=== PATIENT | female | born 1980 | race Caucasian/White ===

== ENCOUNTER → 2020-05-21 10:07 | Outpatient (CLI) | payer OTHER, SELFPAY ==
[2020-05-06 16:18] VITALS: BMI 27.3
[2020-05-21 12:18] LABS: Absolute Lymphocyte Count 2.56 X10^3/uL (0.83-4.51); Absolute Neutrophil Count 4.2 X10^3/uL (2.0-7.7); Basophil# 0.03 X10^3/uL; Basophil% 0.4 % (0-1); Eosinophil# 0.08 X10^3/uL; Eosinophils% 1.1 % (0-5); Hematocrit 42.8 % (37-47); Hemoglobin 13.9 g/dL (12.0-15.0); Lymphocyte # 2.56 X10^3/ul (4.0); Lymphocyte % 35.5 % (19-41); Mean Corp Hgb Conc 32.5 g/dL (32-36); Mean Corpuscular Hgb 30.1 pg (27.0-32.0); Mean Corpuscular Volume 92.6 fL (81-99); Mean Platelet Vol. 10.7 fl (6.2-12.0); Monocyte# 0.37 X10^3/uL; Monocyte% 5.1 % (0-10); NRBC Flagged by Analyzer 0 % (0-5); Neutrophil # 4.15 X10^3/uL (2.7-7.7); Neutrophil % 57.6 % (47-70); Platelet Count 285 K/mm3 (150-450); RBC Distribution Width CV 12.4 % (11.6-14.6); RBC Distribution Width SD 42.3 fl (35.1-43.9); Red Blood Count 4.62 M/mm3 (4.2-5.4); White Blood Count 7.2 K/mm3 (4.4-11.0)
[2020-05-21 12:25] LABS: ALB/GLOB Ratio 0.9 RATIO (0.9-2.4); AST(SGOT) 14 U/L (15-37); Alanine Aminotransfer ALT/SGPT 19 U/L (13-56); Albumin, Serum 3.5 g/dL (3.2-5.0); Alkaline Phosphatase 40 U/L (45-117); Anion Gap 5 (5-15); BUN 11 mg/dL (7-18); BUN/Creat Ratio 12.8 RATIO (10-20); Calcium,Total 8.7 mg/dL (8.5-10.1); Chloride 107 mmol/L (98-107); Cholesterol 267 mg/dL (200); Creatinine, Serum 0.86 mg/dL (0.55-1.02); EST Glomerular Filtration Rate 77 mL/min (>60); Est Glom Filt Rate - Afr Amer 93 mL/min (>60); Globulin 3.8 g/dL (2.2-4.2); Glucose 83 mg/dL (74-106); High Density Lipoprotein 69 mg/dL; Potassium 4.1 mmol/L (3.5-5.1); Protein, Total 7.3 g/dL (6.4-8.2); Sodium Level 139 mmol/L (136-145); Triglycerides 151 mg/dL; Very Low Density Lipoprotein 30 mg/dL (5-40)
== END ==
PROVIDERS: PCP Internal Medicine; Visit Provider Internal Medicine
DX: I10 Essential (primary) hypertension (principal)
CPT/HCPCS: 36415; 80053; 80061; 85025

== ENCOUNTER → 2020-09-20 15:42 | Outpatient (CLI) | payer OTHER, SELFPAY ==
[2020-09-09 16:15] VITALS: BMI 26.7
[2020-09-20 16:55] LABS: Anion Gap 6 (5-15); BUN 13 mg/dL (7-18); BUN/Creat Ratio 16.4 RATIO (10-20); Calcium,Total 8.7 mg/dL (8.5-10.1); Chloride 103 mmol/L (98-107); Creatinine, Serum 0.79 mg/dL (0.55-1.02); EST Glomerular Filtration Rate 84 mL/min (>60); Est Glom Filt Rate - Afr Amer 102 mL/min (>60); Glucose 78 mg/dL (74-106); Magnesium 2.2 mg/dL (1.6-2.6); Potassium 3.6 mmol/L (3.5-5.1); Sodium Level 137 mmol/L (136-145)
== END ==
PROVIDERS: PCP Internal Medicine; Visit Provider Internal Medicine
DX: I10 Essential (primary) hypertension (principal)
CPT/HCPCS: 36415; 80048; 83735

== ENCOUNTER → 2021-06-16 15:53 | Outpatient (CLI) | payer OTHER, SELFPAY ==
[2021-06-16 16:50] LABS: Absolute Lymphocyte Count 2.67 X10^3/uL (0.83-4.51); Absolute Neutrophil Count 3.8 X10^3/uL (2.0-7.7); Basophil# 0.04 X10^3/uL; Basophil% 0.6 % (0-1); Eosinophils% 1.4 % (0-5); Hemoglobin 13.6 g/dL (12.0-15.0); Lymphocyte # 2.67 X10^3/ul (0.83-4.51); Lymphocyte % 37.7 % (19-41); Mean Corp Hgb Conc 32.4 g/dL (32-36); Mean Corpuscular Hgb 30.2 pg (27.0-32.0); Mean Corpuscular Volume 93.1 fL (81-99); Mean Platelet Vol. 10.3 fl (6.2-12.0); Monocyte% 7.1 % (0-10); NRBC Flagged by Analyzer 0 % (0-5); Neutrophil # 3.76 X10^3/uL (2.7-7.7); Neutrophil % 52.9 % (47-70); Platelet Count 233 K/mm3 (150-450); RBC Distribution Width CV 12.7 % (11.6-14.6); RBC Distribution Width SD 43.7 fl (35.1-43.9); Red Blood Count 4.51 M/mm3 (4.2-5.4); White Blood Count 7.1 K/mm3 (4.4-11.0)
[2021-06-16 17:12] LABS: ALB/GLOB Ratio 0.9 RATIO (0.9-2.4); AST(SGOT) 16 U/L (15-37); Alanine Aminotransfer ALT/SGPT 27 U/L (13-56); Albumin, Serum 3.3 g/dL (3.2-5.0); Alkaline Phosphatase 53 U/L (45-117); Anion Gap 6 (5-15); BUN 12 mg/dL (7-18); BUN/Creat Ratio 12.4 RATIO (10-20); Calcium,Total 8.8 mg/dL (8.5-10.1); Chloride 104 mmol/L (98-107); Cholesterol 244 mg/dL (200); Creatinine, Serum 0.97 mg/dL (0.55-1.02); EST Glomerular Filtration Rate 66 mL/min (>60); Est Glom Filt Rate - Afr Amer 80 mL/min (>60); Globulin 3.5 g/dL (2.2-4.2); Glucose 104 mg/dL (74-106); High Density Lipoprotein 58 mg/dL; Potassium 3.6 mmol/L (3.5-5.1); Protein, Total 6.8 g/dL (6.4-8.2); Sodium Level 140 mmol/L (136-145); Triglycerides 296 mg/dL; Very Low Density Lipoprotein 59 mg/dL (5-40)
== END ==
PROVIDERS: PCP Internal Medicine; Referring Provider Internal Medicine; Visit Provider Internal Medicine
DX: I10 Essential (primary) hypertension (principal)
CPT/HCPCS: 36415; 80053; 80061; 85025

== ENCOUNTER → 2021-07-08 16:14 | Outpatient (CLI) | payer OTHER, SELFPAY ==
[2021-07-08 18:21] LABS: Hemoglobin A1c 4.8 % (3.8-5.6)
== END ==
PROVIDERS: PCP Internal Medicine; Visit Provider Internal Medicine Gastroenterology
DX: R10.9 Unspecified abdominal pain (principal)
CPT/HCPCS: 36415; 83036

== ENCOUNTER → 2021-07-22 14:54 | Outpatient (CLI) | payer OTHER, SELFPAY ==
--- NOTE | 2021-07-22 15:08 | CT_ITS ---
STUDY: CT ABDOMEN AND PELVIS WITH CONTRAST REASON FOR EXAM: Female, 41 years old. 5 to six-month history of upper abdominal pain. RADIATION DOSAGE (If Supplied By Facility): CTDIvol = ( 14.74 ) mGy, DLP = ( 996.36 ) mGycm TECHNIQUE: Transaxial images were obtained from the dome of the diaphragm to the symphysis pubis without oral contrast. Oral and amp;amp; IV Readi-CAT and amp;amp; 100mL Isovue-300 was administered. Sagittal and coronal images were reconstructed. Individualized dose optimization techniques were used for this CT. COMPARISON: None. FINDINGS: The visualized lung bases are unremarkable. The visualized portions of the heart are within normal limits. Normal liver. Normal gallbladder and extrahepatic biliary system. Normal spleen. Normal pancreas. Normal bilateral adrenal glands. Normal right kidney. Normal left kidney. Normal visualized stomach. Normal small intestine. There are scattered colonic diverticula consistent with diverticulosis. The appendix is visualized and appears normal. There is scattered atherosclerotic calcification of the abdominal aorta, without a demonstrated aneurysm. Normal inferior vena cava. There is borderline retroperitoneal lymphadenopathy with enlarged nodes no greater than 10mm in the short axis diameter. Normal urinary bladder. Follicles are seen in both ovaries. There is a small umbilical hernia containing fat. There are mild degenerative changes of the visualized lumbar spine. CT/Abdomen/Pelvis WITH Contrast IMPRESSION: Scattered sigmoid diverticula. Electronically Signed: Dakotah Gaona MD at 15:37 EST , Service support ,
[2021-07-22 15:20] LABS: CREATININE FINGERSTICK 0.9 mg/dL (0.55-1.02); EGFR FINGERSTICK > 60.0000 mL/min (>60)
== END ==
PROVIDERS: PCP Internal Medicine; Visit Provider Internal Medicine Gastroenterology
DX: R10.9 Unspecified abdominal pain (principal)
CPT/HCPCS: 74177; Q9967

== ENCOUNTER 2021-08-02 11:59 | Day surgery (SDC) | payer OTHER, SELFPAY ==
[2021-08-02 12:28] LABS: Internal QC Validated? YES +Cl - CLEAR BKGD; Pregnancy, Urine Negative Negative
[2021-08-02 12:32] VITALS: BP 147/88; PULSE 89; RESP 18; TEMP 36.2; O2SAT 100; BMI 30.4
[2021-08-02] MEDS: Lactated Ringers 1,000 ML 15 ML IV (12:42)
--- NOTE | 2021-08-02 13:00 | EGD_PTH ---
PATIENT: KULDIP RODAS LOC: EN U#:[id number] AGE/SX: 41/F ROOM: RE08/02/[address]: Dr. Sathish Cook DO : 1980 BED: DIS: 08/02/2021 SPEC #: [id number] RECD: 08/02/21 15:18 STATUS: FORD REFrancois #: [id number] BITA: 08/02/21 13:[address]: Sathish Cook DEPT: SURGICAL PATHOLOGY RECD BY: Yesica Garcia ENTERED: 08/03/21 09:34 SP TYPE: EGD BIOPSY OT DR: Dr. Coral Agosto MD Tissues: A - Gastric mucous membrane B - Duodenum, NOS C - Gastric mucous membrane D - Esophagus, NOS Procedures: Special Stain Group II Surgery Specimen Level IV Alcian Blue/PAS (control) HEADER OPERATION: EGD PRE-OP DIAGNOSIS: Chronic abdominal discomfort TISSUE SUBMITTED: A ? Antrum biopsy for histo and H. pylori, B ? Duodenum biopsy, C ? Gastric body biopsy, D ? Distal esophagus biopsy MICROSCOPIC DIAGNOSIS A. Antrum, biopsy: Mild gastritis. See microscopic description and comment. B. Duodenum, biopsy: Fragments of duodenal mucosa with congestion and Smiley gland hyperplasia. C. Gastric body, biopsy: Mild gastritis. See microscopic description. D. Distal esophagus, biopsy: Fragments of gastroesophageal mucosa with moderate chronic inflammation. Intestinal metaplasia (goblet cell metaplasia) not identified. See comment. SJ:jimmy 08/04/2021 COMMENT A. The results of immunohistochemistry for Helicobacter pylori will be reported separately ([id number]). C. Alcian blue/PAS stain with matched control is used in the evaluation of the specimen. MICROSCOPIC DESCRIPTION Slides are reviewed. A & C. The specimen shows fragments of gastric mucosa with chronic inflammatory cell infiltrates in the lamina propria consisting of lymphocytes and plasma cells, consistent with mild chronic gastritis. GROSS DESCRIPTION A - Received in fixative is one container labeled with the patient's name and designated antrum biopsy. The specimen consists of two irregular fragments of light amaya soft tissue that in aggregate measure 0.5 x 0.2 x 0.1 cm. The specimen is totally submitted in one cassette. B - Received in fixative is one container labeled with the patient's name and designated duodenum biopsy. The specimen consists of multiple irregular fragments of light amaya soft tissue that in aggregate measure 1.5 x 0.5 x 0.1 cm. The specimen is totally submitted in one cassette. C - Received in fixative is one container labeled with the patient's name and designated gastric body biopsy. The specimen consists of two irregular fragments of light amaya soft tissue that in aggregate measure 0.6 x 0.2 x 0.1 cm. The specimen is totally submitted in one cassette. D - Received in fixative is one container labeled with the patient's name and designated distal esophagus biopsy. The specimen consists of two irregular fragments of light amaya soft tissue that in aggregate measure 0.5 x 0.2 x 0.1 cm. The specimen is totally submitted in one cassette. / SJ:rg 08/03/21 TC:3 [facility]: [id number] x4, [id number]
--- NOTE | 2021-08-02 13:00 | IMM_PTH ---
PATIENT: KULDIP RODAS LOC: EN U#:[id number] AGE/SX: 41/F ROOM: RE08/02/[address]: Dr. Sathish Cook DO : 1980 BED: DIS: 08/02/2021 SPEC #: [id number] RECD: 08/03/21 13:38 STATUS: FORD REQ #: [id number] BITA: 08/02/21 13:[address]: Sathish Cook DEPT: IMMUNOHISTOCHEMISTRY RECD BY: Shaista Lazaro ENTERED: 08/03/21 13:38 SP TYPE: IMMUNO OTHR DR: Dr. Coral Agosto MD Tissues: A - Stomach, NOS Procedures: H Pylori (initial) PHYSICIAN & INSTITUTION [address] [address] SPECIMEN INFORMATION: Tissue Source: A ? Antrum biopsy Clinical Info: Chronic abdominal discomfort Specimen Number: [id number] CPT code: 46873 METHODOLOGY: Deparaffinized sections of prefer/formalin-fixed tissue or PAP/DQ stained slides are incubated with monoclonal/polyclonal antibodies/oligonucleotide probes. Localization is made via biotin free immunoperoxidase method. Appropriate controls are performed and reacted as expected. Results on target cell population are indicated in the following table: RESULTS: ANTIBODY / CLONE RESULT Block A H Pylori (polyclonal) negative These tests were developed and their performance characteristics determined by [facility]. They may not have been cleared or approved by the U.S. Food and Drug Administration. The FDA has determined that such clearance or approval is not necessary. INTERPRETATION: A. Antrum, biopsy: Negative for Helicobacter pylori organisms. SJ:jimmy 08/04/2021
--- NOTE | 2021-08-02 14:04 | HP.PCM_ITS ---
History and Physical Date of Admission: 08/02/21 who presents to the office today for In high school she got mono and following this she got 6 sinus infections a year and received antibiotics each time. AFter a while she started getting bloating, abdominal pain. Was able to treat sinus infections preventatively. Approximately six months ago she got very bad abdominal pain radiating into back especially with fasting and during her menstrual cycle. When abdominal pain she has a 4-6 diarrhea episodes a day. Otherwise she runs toward perdiodic constipation. Denies mucous and blood. Probiotic started and this has helped. ROS Const Constitutional: Positive for fatigue ENT ENT: Positive for nasal congestion Gastro GI: Positive for abdominal pain, bloating, change in bowel habits, constipation, diarrhea and nausea/dyspepsia Genitourinary-Female: Positive for urinary incontinence Musc Musculoskeletal: Positive for joint pain, muscle cramps, stiffness and Arthritis Psych Psychiatric: Positive for anxiety Endo Endocrine: Positive for fatigue Exam Const General: cooperative and comfortable Nutritional Appearance: average body habitus and well nourished HENMT Head: normal to inspection Ears: hearing grossly normal bilaterally Nose: external nose normal Face and sinus: normal facial exam Mouth: oral mucosae normal Throat: posterior oropharynx normal Eyes General: appearance normal, both eyes and all related structures Neck Neck: normal visual inspection Chest Chest palpation & inspection: normal inspection of the chest and normal palpation of entire chest wall Resp Effort & Inspection: normal respiratory effort Auscultation: Bilateral: Clear to Auscultation Cardio Palpation: normal PMI Rate: regular rate Rhythm: regular rhythm GI Inspection: normal to inspection Auscultation: normal bowel sounds Percussion: normal to percussion Palpation: no hepatosplenomegaly Skin General: no rashes or lesions noted Neuro General: patient alert Extrem General: normal to inspection Psych Affect: normal affect Quality Reporting Tobacco Screening ([facility] 138) Smoking Status: Never smoker Assessment and Plan Assessment and Plan (1) Abdominal discomfort: Status: Chronic Orders: Orders: Hemoglobin A1c 07/08/21 CT Abd/Pelvis W/WO Contrast 07/08/21 Plan - Dr. Bower Friend, DO: The differential diagnosis for abdominal pain does include gastritis, atypical gastroesophageal reflux disease, gastroparesis and less likely IBS. We will get a CT scan abdomen pelvis we will also perform upper endoscopy evaluate her upper GI tract. I have re-examined the patient. There are no clinical changes since date of exam.
[2021-08-02 14:30] VITALS: BP 112/81; BP 147/88; PULSE 83; RESP 16; TEMP 36.2; O2SAT 98
--- NOTE | 2021-08-02 14:31 | OP.EGD_ITS ---
Patient Name: Arleth Ahumada Procedure Date: 08/02/2021 2:03 PM Date of : 1980 Age: 41 Procedure: Upper GI endoscopy Indications: Epigastric abdominal pain Providers: Sathish Cook DO Medicines: See the Anesthesia note for documentation of the administered medications Patient Profile: This is a 41 year old female. Refer to note in patient chart for documentation of history and physical. Patient has symptoms of acute abdominal cramping and acute epigastric abdominal pain. Complications: No immediate complications. Procedure: Pre-Anesthesia Assessment: - Prior to the procedure, a History and Physical was performed, and patient medications and allergies were reviewed. The patient is competent. The risks and benefits of the procedure and the sedation options and risks were discussed with the patient. All questions were answered and informed consent was obtained. Patient identification and proposed procedure were verified by the physician in the pre-procedure area. Mental Status Examination: alert and oriented. Airway Examination: normal oropharyngeal airway and neck mobility. Respiratory Examination: clear to auscultation. CV Examination: normal. Prophylactic Antibiotics: The patient does not require prophylactic antibiotics. Prior Anticoagulants: The patient has taken no previous anticoagulant or antiplatelet agents. ASA Grade Assessment: II - A patient with mild systemic disease. After reviewing the risks and benefits, the patient was deemed in satisfactory condition to undergo the procedure. The anesthesia plan was to use moderate sedation / analgesia (conscious sedation). Immediately prior to administration of medications, the patient was re-assessed for adequacy to receive sedatives. The heart rate, respiratory rate, oxygen saturations, blood pressure, adequacy of pulmonary ventilation, and response to care were monitored throughout the procedure. The physical status of the patient was re-assessed after the procedure. After obtaining informed consent, the endoscope was passed under direct vision. Throughout the procedure, the patient's blood pressure, pulse, and oxygen saturations were monitored continuously. The gastroscope was introduced through the mouth, and advanced to the second part of duodenum. The upper GI endoscopy was accomplished without difficulty. The patient tolerated the procedure well. Moderate Sedation: Moderate (conscious) sedation was administered by the endoscopy nurse and supervised by the endoscopist. The patient's oxygen saturation, heart rate, blood pressure and response to care were monitored. Total physician intraservice time was 15 minutes. Scope In: 2:13:46 PM Scope Out: 2:23:59 PM Total Procedure Duration Time 0 hours 10 minutes 13 seconds Findings: LA Grade A (one or more mucosal breaks less than 5 mm, not extending between tops of 2 mucosal folds) esophagitis with no bleeding was found 34 to 35 cm from the incisors. Biopsies were taken with a cold forceps for histology. Verification of patient identification for the specimen was done. Estimated blood loss was minimal. Also a small hiatal hernia was seen. Localized mild inflammation characterized by erythema was found in the gastric body and in the prepyloric region of the stomach. Biopsies were taken with a cold forceps for histology. Verification of patient identification for the specimen was done. Estimated blood loss was minimal. Localized mild inflammation characterized by congestion (edema) was found in the duodenal bulb. Biopsies were taken with a cold forceps for histology. Impression: - LA Grade A reflux esophagitis. Biopsied. - Gastritis. Biopsied. - Duodenitis. Biopsied. Recommendation: - Await pathology results. - Repeat upper endoscopy in 1 year for surveillance based on pathology results. - Return to GI clinic in 2 weeks. - Continue present medications. Procedure Code(s): --- Professional --- 90095, Esophagogastroduodenoscopy, flexible, transoral; with biopsy, single or multiple G0500, Moderate sedation services provided by the same physician or other qualified health day care home mother performing a gastrointestinal endoscopic service that sedation supports, requiring the presence of an independent trained observer to assist in the monitoring of the patient's level of consciousness and physiological status; initial 15 minutes of intra-service time; patient age 5 years or older (additional time may be reported with 38790, as appropriate) CPT copyright 2017 [employer]. All rights reserved. The codes documented in this report are preliminary and upon speech language pathologist travel review may be revised to meet current compliance requirements. Sathish Cook DO 08/02/2021 2:31:32 PM This report has been signed electronically. Number of Addenda: 1 Note Initiated On: 08/02/2021 2:03 PM Addendum Number: 1 Addendum Date: 05/05/2022 6:37:10 AM MAC was used instead of moderate sedation for this patient. Sathish Cook DO 05/05/2022 6:37:15 AM This report has been signed electronically.
[2021-08-02 14:35] VITALS: BP 126/82; BP 147/88; PULSE 79; RESP 16; O2SAT 99
[2021-08-02 14:40] VITALS: BP 128/84; BP 147/88; PULSE 72; RESP 16; O2SAT 99
[2021-08-02 14:45] VITALS: BP 132/85; BP 147/88; PULSE 70; RESP 16; TEMP 36.1; O2SAT 100
[2021-08-02 15:18] VITALS: BP 147/88
== END 2021-08-02 15:44 ==
LOC: EN 12:01 → AC 12:02
PROVIDERS: Anesthesiology; PCP Internal Medicine; Referring Provider Internal Medicine; Visit Provider Internal Medicine Gastroenterology
PROC: (CPT 43239; principal; 2021-08-02 12:55)
DX: K21.00 Gastro-esophageal reflux disease with esophagitis, without bleeding (principal); K29.70 Gastritis, unspecified, without bleeding; K29.80 Duodenitis without bleeding; R53.83 Other fatigue
CPT/HCPCS: 43239; 81025; 88305; 88313; 88342; J7120; J2405

== ENCOUNTER 2021-09-22 15:27 | Outpatient (CLI) | payer OTHER, SELFPAY ==
[2021-09-22 17:27] LABS: Anion Gap 5 (5-15); BUN 13 mg/dL (7-18); Calcium,Total 8.5 mg/dL (8.5-10.1); Chloride 106 mmol/L (98-107); Creatinine, Serum 0.81 mg/dL (0.55-1.02); EST Glomerular Filtration Rate 82 mL/min (>60); Est Glom Filt Rate - Afr Amer 99 mL/min (>60); Glucose 111 mg/dL (74-106); Magnesium 2.3 mg/dL (1.6-2.6); Potassium 3.6 mmol/L (3.5-5.1); Sodium Level 139 mmol/L (136-145); T4 Free Direct 0.95 ng/dL (0.76-1.46); Thyroid Stim Hormone (TSH) 2.45 uIU/mL (0.358-3.74)
[2021-09-26 16:08] LABS: Endomysial Antibody IgA Negative (Negative)
[2021-09-26 20:21] LABS: Immunoglobulin A 114 mg/dL (87-352); t-Transglutaminase IgA <2 U/mL (0-3)
== END 2021-09-22 23:59 | disposition short-term general hospital (02) ==
LOC: BIMLAB 15:28
PROVIDERS: Internal Medicine Gastroenterology; PCP Internal Medicine; Referring Provider Internal Medicine; Visit Provider Internal Medicine
DX: N92.6 Irregular menstruation, unspecified (principal); K29.60 Other gastritis without bleeding; R25.2 Cramp and spasm
CPT/HCPCS: 36415; 80048; 82784; 83516; 83735; 84439; 84443; 86255

== ENCOUNTER → 2022-10-20 | Outpatient (CLI) | payer OTHER, SELFPAY ==
[2022-10-20 12:47] LABS: Absolute Lymphocyte Count 2.51 X10^3/uL (0.83-4.51); Absolute Neutrophil Count 3.3 X10^3/uL (2.0-7.7); Basophil# 0.04 X10^3/uL; Basophil% 0.6 % (0-1); Eosinophil# 0.08 X10^3/uL; Eosinophils% 1.3 % (0-5); Hematocrit 44.5 % (37-47); Hemoglobin 14.9 g/dL (12.0-15.0); Lymphocyte # 2.51 X10^3/ul (0.83-4.51); Lymphocyte % 39.5 % (19-41); Mean Corp Hgb Conc 33.5 g/dL (32-36); Mean Corpuscular Hgb 31.1 pg (27.0-32.0); Mean Corpuscular Volume 92.9 fL (81-99); Mean Platelet Vol. 10.2 fl (6.2-12.0); Monocyte# 0.43 X10^3/uL; Monocyte% 6.8 % (0-10); NRBC Flagged by Analyzer 0 % (0-5); Neutrophil # 3.28 X10^3/uL (2.7-7.7); Neutrophil % 51.5 % (47-70); Platelet Count 256 K/mm3 (150-450); RBC Distribution Width CV 12.5 % (11.6-14.6); RBC Distribution Width SD 42.9 fl (35.1-43.9); Red Blood Count 4.79 M/mm3 (4.2-5.4); White Blood Count 6.4 K/mm3 (4.4-11.0)
[2022-10-20 12:59] LABS: AST(SGOT) 24 U/L (15-37); Alanine Aminotransfer ALT/SGPT 29 U/L (13-56); Albumin, Serum 3.7 g/dL (3.2-5.0); Alkaline Phosphatase 66 U/L (45-117); Anion Gap 7 (5-15); BUN 14 mg/dL (7-18); BUN/Creat Ratio 16.5 RATIO (10-20); Calcium,Total 8.8 mg/dL (8.5-10.1); Chloride 103 mmol/L (98-107); Cholesterol 273 mg/dL (200); Creatinine, Serum 0.85 mg/dL (0.55-1.02); EST Glomerular Filtration Rate 77 mL/min (>60); Est Glom Filt Rate - Afr Amer 94 mL/min (>60); Globulin 3.6 g/dL (2.2-4.2); Glucose 93 mg/dL (74-106); High Density Lipoprotein 56 mg/dL; Magnesium 2.1 mg/dL (1.6-2.6); Phosphorus 3.4 mg/dL (2.5-4.9); Potassium 3.8 mmol/L (3.5-5.1); Protein, Total 7.3 g/dL (6.4-8.2); Sodium Level 138 mmol/L (136-145); Triglycerides 199 mg/dL; Very Low Density Lipoprotein 40 mg/dL (5-40)
== END | disposition home or self-care (01) ==
LOC: BIMLAB 11:32
PROVIDERS: PCP Internal Medicine; Visit Provider Internal Medicine
DX: I10 Essential (primary) hypertension (principal); E78.5 Hyperlipidemia, unspecified; R25.2 Cramp and spasm
CPT/HCPCS: 36415; 80053; 80061; 83735; 84100; 85025

== ENCOUNTER 2025-04-07 12:53 | Day surgery (SDC) | payer OTHER, SELFPAY ==
[2025-04-07] VITALS (7 sets, daily range): BP systolic 110–138; BP diastolic 64–90; PULSE 64–77; RESP 16; TEMP 36.2–37.2; O2SAT 100
--- NOTE | 2025-04-07 13:15 | HP.PCM_ITS ---
[facility] - General General Date of Admission: 04/07/25 Date of Service: 04/07/25 Chief Complaint: Screening colonoscopy [facility] Narrative KULDIP RODAS, is a 45 F who presents today for screening colonoscopy. She has never had a colonoscopy in the past. She does not have any abdominal pain, cramping, chest pain or shortness of breath. [facility] Medical History Wears glasses Bladder disease History of diverticulitis Gastric reflux Health care maintenance Obesity (BMI 30.0-34.9) Hyperlipidemia Muscle cramps Menstrual irregularity Arthritis High cholesterol Diverticulosis Non-smoker Leg cramps History of edema Abdominal discomfort Hypertension Psoriasis Home Medications ?Medication ?Instructions ?Recorded ?Last Taken ?Type turmeric 400 mg capsule 450 mg PO DAILY 07/26/21 Unk nown History magnesium 30 mg tablet 30 mg PO DAILY 12/29/21 Unkn own History vitamin C 50 mg-B5 125 mg-DMAE 1 tab PO DAILY 10/11/23 Unknown History 12.5 fk-khlusbupe-pmlzkllw-herb tablet (Adrenal Optimizer) [place]-herbal drugs tablet 1 tab PO Q5D 04/01/25 U nknown History Allergy/AdvReac Type Severity Reaction Status Date / Time almond Allergy Mild sore in Verified 04/01/25 10:23 mouth amoxicillin Allergy Mild rash Verified 04/01/25 10:23 Family History Grandmother Breast cancer Thyroid disorder Father Diabetes Cancer Mother Hypertension Psoriasis Grandfather Psoriasis Brother Psoriasis Sister Psoriasis Surgical History History of surgery History of surgery Ganglion cyst Social History Smoking Status: Never smoker alcohol intake: never substance use type: does not use ROS Constitutional Constitutional: Denies fatigue, fever(s), poor appetite, weight gain or weight loss Gastrointestinal Gastrointestinal: Denies belching, bloating, change in bowel habits, change in stool character, chewing difficulty, coffee ground emesis, constipation, cramping, diarrhea, dyspepsia, dysphagia, early satiety, excessive flatus, fecal incontinence, heartburn, hematemesis, hematochezia, hemorrhoids, loose stools, melena, nausea, odynophagia, rectal bleeding, tenesmus, vomiting or weight changes Physical Exam Const alert, oriented x3, no apparent distress and healthy appearing General Appearance: cooperative GI normal to inspection, nondistended, normoactive bowel sounds, soft to palpation, non-tender and non-distended Percussion: normal to percussion Rectal Exam: deferred Assessment & Plan Assessment/Plan (1) Encounter for screening colonoscopy: PLAN: She was explained alternatives, risk and benefits include not withstanding bleeding, infection, sepsis, perforation, need emergent urgent . She will have an ASA of 3.
[2025-04-07] MEDS: Lactated Ringers 1,000 ML 15 ML IV (13:28)
[2025-04-07 13:29] LABS: Internal QC Validated? YES +Cl - CLEAR BKGD; Pregnancy, Urine Negative Negative
[2025-04-07 13:30] LABS: Record Kit Lot#,Urine Preg 962302
--- NOTE | 2025-04-07 14:06 | PRE.ANES_ITS ---
ASA Classification* ASA Classification ASA Classification: 1 Assessment & Plan Anesthesia* Anesthesia Assessment Anesthesia Assessment: Discussed sedation and/or anesthesia options, risks, benefits, and alternatives with patient/parents/legal guardian/POA. Questions invited. The patient/parents/legal guardian/POA seems to understand and agrees to proceed with anesthesia plan. Reviewed the physical assessment, medical history, allergy history and patient home medications list prior to surgery/procedure/anesthetic and documented any changes. Performed airway and anesthesia risk assessments. Anesthesia Type Anesthesia Type: MAC History Source History Obtained from:: Patient and Chart Anesthesia Focused Assessment* Temperature: 98.6 F Pulse Rate: 73 Blood Pressure: 137/84 Respiratory Rate: 16 Pulse Ox: 100 Oxygen Delivery Method: Room Air Airway Assessment Mouth opens: >3 cm Mallampati Score: II Teeth Condition: Intact Neck Range of motion (ROM): Full ROM Labs Anesthesia Preop lab: CBC WBC 6.4 K/mm3 (4.4-11.0) 10/20/22 11:10/20/22 RBC 4.79 M/mm3 (4.2-5.4) 10/20/22 11:10/20/22 Hgb 14.9 g/dL (12.0-15.0) 10/20/22 11:10/20/22 Hct 44.5 % (37-47) 10/20/22 11:32 10/20/22 Plt Count 256 K/mm3 (150-450) 10/20/22 11:32 10/20/22 CHEMISTRY Potassium 3.8 mmol/L (3.5-5.1) 10/20/22 11:32 10/20/22 Sodium 138 mmol/L (136-145) 10/20/22 11:32 10/20/22 Magnesium 2.1 mg/dL (1.6-2.6) 10/20/22 11:10/20/22 Phosphorus 3.4 mg/dL (2.5-4.9) 10/20/22 11:32 10/20/22 BUN 14 mg/dL (7-18) 10/20/22 11:32 10/20/22 Creatinine 0.85 mg/dL (0.55-1.02) 10/20/22 11:32 10/20/22 Glucose 93 mg/dL (74-106) 10/20/22 11:32 10/20/22 TSH 2.45 uIU/mL (0.358-3.74) 09/22/21 15:29 COAG Urine Test Negative Negative 04/07/25 13:12 04/07/25 Pre-Assessment Diagnosis/Proposed Procedure Planned Operative Procedure(s): COLONOSCOPY Anesthesia History Anesthesia History - senior patient account representative: Anesthesia History - senior patient account representative Hx Hospitalization No 04/01/25 10:25 Any Problems With Anesthesia No 04/01/25 10:25 Cholinesterase deficiency No 04/01/25 10:25 You/Your Family Experience No 04/01/25 10:25 fever (hyperthermia) with Relationship Recent Exposure to Contagious No 04/07/25 13:18 Disease Does patient have nerve No 04/01/25 10:25 stimulator Patient instructed to have device shut off --Does patient have Pacemaker No 04/07/25 13:18 or ICD? When Was Last Pacemaker Check QUESTION #4 FULL TEXT: You/Your Family Experience fever (hyperthermia) with Anesthesia Last Oral Intake Last Oral intake: Last Oral Intake NPO since 20:00 04/07/25 13:18 Meds taken in AM with sips of No 04/07/25 13:18 water? Meds patient instructed to take am of surgery PONV PONV - senior patient account representative: PONV - senior patient account representative Female Yes 04/01/25 10:25 HX of Motion Sickness No 04/01/25 10:25 HX of N/V After Surgery No 04/01/25 10:25 Non-Smoker Yes 04/01/25 10:25 Duration of Surgery greater No 04/01/25 10:25 than 60 minutes Number of Risk Factors 2 04/01/25 10:25 PONV Score Moderate Risk 04/01/25 10:25 Height & Weight Height & Weight: Anesthesia: Height & Weight Height 5 ft 6.93 in 04/07/25 13:18 Respiratory Assessment Respiratory Assessment - senior patient account representative: Respiratory Tract Infection Hx - senior patient account representative Hx Respiratory Tract Infection No 04/01/25 10:25 STOP Sleep Apnea STOP Sleep Apnea - senior patient account representative: STOP Sleep Apnea - senior patient account representative Hx Hypertension No 04/01/25 10:25 Hx Sleep Apnea No 07/30/25 10:25 CPAP BIPAP Do you snore loudly (louder No 04/01/25 10:25 than talking or can be heard Do you often feel tired/ No 04/01/25 10:25 fatigued/ sleepy during daytime? Has anyone observed you stop No 04/01/25 10:25 breathing during sleep? STOP Results Negative 04/01/25 10:25 QUESTION #5 FULL TEXT : Do you snore loudly (louder than talking or can be heard through closed doors)? Tobacco Use History Tobacco Use History - senior patient account representative: Tobacco Use History - senior patient account representative Tobacco Use Smoking Status Never smoker 04/01/25 10:25 Hx Tobacco Use No 04/01/25 10:25 Years Smoking Packs Smoked per Day Smoking Cessation Date was within the last 15 years Hx Smoking Cessation Date Hx Smoking Cessation Counseling Hematologic Medial History Hematologic Hx - senior patient account representative: Hematologic Medical Hx - laundry housekeeping aide Hx of Blood Transfusion No 04/01/25 10:25 Hx of Transfusion in last 3 No 04/01/25 10:25 Months Date of Last Transfusion (if within last 3 months) Ever experience any problems No 04/01/25 10:25 with transfusion(s)? Specify any problems Hx of Preganancy in last 3 No 04/01/25 10:25 Months Nurse Filling Out Transfusion [facility]LE[facility] 04/01/25 10:25 & Questions: Date: 04/01/25 04/01/25 10:25 Time: 10:34 04/01/25 10:25 Patient unable to answer at this time (ie. confused, unrespo /Reproduction History /Reproductive History - senior patient account representative: /Reproductive Hx- senior patient account representative Hx Now No 04/01/25 10:25 Gestational Age (in weeks): EDC: Hx Hx Para Hx Section SAB No 04/01/25 10:25 Active Medications Active Medications: Current Medications Generic Name Dose Route Start Last Admin Trade Name Freq PRN Reason Stop Dose Admin Lactated Ringer's 1,000 mls @ 15 mls/hr 04/07/25 13:15 04/07/25 13:28 IV 15 mls/hr .Q48H LIDA Administration PFSH Medical History Wears glasses Bladder disease History of diverticulitis Gastric reflux Health care maintenance Obesity (BMI 30.0-34.9) Hyperlipidemia Muscle cramps Menstrual irregularity Arthritis High cholesterol Diverticulosis Non-smoker Leg cramps History of edema Abdominal discomfort Hypertension Psoriasis Home Medications ?Medication ?Instructions ?Recorded ?Last Taken ?Type turmeric 400 mg capsule 450 mg PO DAILY 07/26/21 Unk nown History magnesium 30 mg tablet 30 mg PO DAILY 12/29/21 Unkn own History vitamin C 50 mg-B5 125 mg-DMAE 1 tab PO DAILY 10/11/23 Unknown History 12.5 sr-wdpyjalsj-yoqrenwu-herb tablet (Adrenal Optimizer) [place]-herbal drugs tablet 1 tab PO Q5D 04/01/25 U nknown History Allergy/AdvReac Type Severity Reaction Status Date / Time almond Allergy Mild sore in Verified 04/01/25 10:23 mouth amoxicillin Allergy Mild rash Verified 04/01/25 10:23 Family History Grandmother Breast cancer Thyroid disorder Father Diabetes Cancer Mother Hypertension Psoriasis Grandfather Psoriasis Brother Psoriasis Sister Psoriasis Surgical History History of surgery History of surgery Ganglion cyst Social History Smoking Status: Never smoker alcohol intake: never substance use type: does not use Review of Systems (Anesthesia) ROS Narrative System reviewed and no additional complaints, except as documented.
--- NOTE | 2025-04-07 15:06 | PCM.POST.ANE ---
Anesthesia: Postop Eval I Current Vital Signs Temperature: 98.6 F Pulse Rate: 77 Blood Pressure: 110/64 Respiratory Rate: 16 Pulse Ox: 100 Assessment Airway patent: Yes Spontaneous unlabored respirations: Yes nausea: No Vomiting: No Anesthesia Complication: No Fluid Hydration Crystalloid volume administer (ml): 400 Total IV fluid infused: 400 Progress Note Anesthesia document: Postop Eval 1 completed: Yes
--- NOTE | 2025-04-07 15:50 | OP.COLON_ITS ---
Patient Name: Arleth Ahumada Procedure Date: 04/07/2025 2:31 PM Date of : 1980 Age: 45 Procedure: Colonoscopy Indications: Screening for colorectal malignant neoplasm Providers: Sathish Cook DO Medicines: Monitored Anesthesia Care Patient Profile: This is a 45 year old female. Refer to note in patient chart for documentation of history and physical. Last Colonoscopy: none. The patient's first colonoscopy is today. Complications: No immediate complications. Procedure: Pre-Anesthesia Assessment: - Prior to the procedure, a History and Physical was performed, and patient medications and allergies were reviewed. The patient is competent. The risks and benefits of the procedure and the sedation options and risks were discussed with the patient. All questions were answered and informed consent was obtained. Patient identification and proposed procedure were verified by the physician in the pre-procedure area. Mental Status Examination: alert and oriented. Airway Examination: normal oropharyngeal airway and neck mobility. Respiratory Examination: clear to auscultation. CV Examination: normal. Prophylactic Antibiotics: The patient does not require prophylactic antibiotics. Prior Anticoagulants: The patient has taken no anticoagulant or antiplatelet agents except for NSAID medication. ASA Grade Assessment: II - A patient with mild systemic disease. After reviewing the risks and benefits, the patient was deemed in satisfactory condition to undergo the procedure. The anesthesia plan was to use monitored anesthesia care (MAC). Immediately prior to administration of medications, the patient was re-assessed for adequacy to receive sedatives. The heart rate, respiratory rate, oxygen saturations, blood pressure, adequacy of pulmonary ventilation, and response to care were monitored throughout the procedure. The physical status of the patient was re-assessed after the procedure. After I obtained informed consent, the scope was passed under direct vision. Throughout the procedure, the patient's blood pressure, pulse, and oxygen saturations were monitored continuously. The pediatric colonoscope was introduced through the anus and advanced to the cecum, identified by appendiceal orifice and ileocecal valve. The colonoscopy was performed without difficulty. The patient tolerated the procedure well. The quality of the bowel preparation was adequate. Scope In: 2:47:04 PM Scope Withdrawal Time 0 hours 7 minutes 27 seconds Scope Out: 2:59:48 PM Total Procedure Duration Time 0 hours 12 minutes 44 seconds Findings: The perianal and digital rectal examinations were normal. The colon (entire examined portion) appeared normal. Impression: - The entire examined colon is normal. - No specimens collected. Recommendation: - Discharge patient to home. - Resume previous diet. - Continue present medications. - Repeat colonoscopy in 10 years for screening purposes. Procedure Code(s): --- Professional --- G0121, Colorectal cancer screening; colonoscopy on individual not meeting criteria for high risk CPT copyright 2021 [employer]. All rights reserved. The codes documented in this report are preliminary and upon vice president commercial bank review may be revised to meet current compliance requirements. Sathish Cook DO 04/07/2025 3:49:51 PM This report has been signed electronically. Number of Addenda: 0 Note Initiated On: 04/07/2025 2:31 PM
--- NOTE | 2025-04-07 15:50 | OP.PROVAT_ITS ---
04/07/2025 Coral Agosto MD [address] [place] [address] [place] [address] Re : Colonoscopy procedure for Arleth Ahumada Dear Dr. Agosto This procedure was performed on Monday, April 07, 2025. My impressions and recommendations are as follows: Impressions : - The entire examined colon is normal. - No specimens collected. Recommendations : - Discharge patient to home. - Resume previous diet. - Continue present medications. - Repeat colonoscopy in 10 years for screening purposes. My findings are described in the full procedure note, which is enclosed. If I can be of further assistance, please feel free to contact me at . Sincerely, Sathish Cook, 04/07/2025 3:49:51 PM This report has been signed electronically.
--- NOTE | 2025-04-07 17:02 | POSTOPAN2_ITS ---
Anesthesia Postop Eval I Sum Postop Eval Completion status Anesthesia document: Postop Eval 1 completed: Yes Anesthesia Postop Eval I Summary Anesthesia Postop Eval I Summary: Anesthesia Postop Eval I: Assessment Summary Airway patent Yes 04/07/25 15:[address] [email or web address] Spontaneous unlabored Yes 04/07/25 15:[address] COURT [email or web address] respirations Mental status nausea No 04/07/25 15:[address] COURT [email or web address] Vomiting No 04/07/25 15:07 COURT [email or web address] Anesthesia Postop Eval I: Fluid Summary Crystalloid volume administer 400 04/07/25 15:[address] [email or web address] (ml) Colloids volume administered ( ml) Blood Product volume administered (ml) Total IV fluid infused 400 04/07/25 15:[address] [email or web address] Anesthesia Postop Eval I: Summary Notes Anesthesia Complication No 04/07/25 15:[address] [email or web address] Anesthesia Complication Comment: Post-operative progress note Anesthesia: Postop Eval II Evaluation Mental status: Awake and Calm Pain Level: 1 nausea: No Vomiting: No Complications Anesthesia Complication: No
--- NOTE | 2025-04-07 17:02 | PCM.POSTANE2 ---
Anesthesia Postop Eval I Sum Postop Eval Completion status Anesthesia document: Postop Eval 1 completed: Yes Anesthesia Postop Eval I Summary Anesthesia Postop Eval I Summary: Anesthesia Postop Eval I: Assessment Summary Airway patent Yes 04/07/25 15:07 GAS APPLIANCE [email or web address] Spontaneous unlabored Yes 04/07/25 15:07 GAS APPLIANCE [email or web address] respirations Mental status nausea No 04/07/25 15:07 GAS APPLIANCE [email or web address] Vomiting No 04/07/25 15:07 GAS APPLIANCE [email or web address] Anesthesia Postop Eval I: Fluid Summary Crystalloid volume administer 400 04/07/25 15:07 GAS APPLIANCE [email or web address] (ml) Colloids volume administered ( ml) Blood Product volume administered (ml) Total IV fluid infused 400 04/07/25 15:07 GAS APPLIANCE [email or web address] Anesthesia Postop Eval I: Summary Notes Anesthesia Complication No 04/07/25 15:07 GAS APPLIANCE [email or web address] Anesthesia Complication Comment: Post-operative progress note Anesthesia: Postop Eval II Evaluation Mental status: Awake and Calm Pain Level: 1 nausea: No Vomiting: No Complications Anesthesia Complication: No
--- OUTSIDE RECORDS SUMMARY | 2025-04-07 19:10 | XMS RPT_ITS | CCD ---
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 10/11/2021 (mammogram), 11/16/2021 (mammogram), 05/23/2022 (mammogram), 11/10/2022 (mammogram) and 03/12/2024 (mammogram). MAMMOGRAM TECHNIQUE: The study was acquired using full field digital technology and interpreted from soft copy. Digital Breast Tomosynthesis (DBT) images were obtained and used to assist in the interpretation of this examination. MAMMOGRAM FINDINGS: There are scattered areas of fibroglandular density. No suspicious masses, calcifications or other abnormalities are seen in either breast. There are no significant interval changes. IMPRESSION: There is no mammographic evidence of malignancy in either breast. Routine screening mammogram is recommended. Annual mammogram will be due in 1 year. BI-RADS Category 1: Negative RISK: Based on the Tyrer-Cuzick (TC) risk assessment model, this patient has a 12.4% lifetime risk of developing breast cancer, meaning they are at average risk for developing breast cancer. However, this is only an estimate based on available history provided on the patient's questionnaire. We encourage all patients to talk with their providers about these results, further recommendations for managing breast health, and appropriate supplemental screening options if the patient has dense breast tissue. Interpreting Radiologist: Alexandra Lopez M.D. Electronically signed on: 03/16/2025 Business Process Modeler: EDGARDO Nationriduane Date/Time: Mar 13 2025 1:54P Dictated by: ALEXANDRA LOPEZ MD This examination was interpreted and the report reviewed and electronically signed by: ALEXANDRA LOPEZ MD on Mar 16 2025 2:05PM EST [id number] N Normal [facility] CNPNon 02-20-2025 CNPN Telephone (OBGYWM) ARLETH RODAS ([id number]) 1980 F Date Time Provider Department 02/20/25 MISSY CALHOUN During your visit today, we recorded the following information about you: Arleth Pritchett RN 02/20/2025 2:10 PM Signed Please file order for Mamm with ELAN. Route to PSS once signed to call and assist patient with scheduling. Arleth Pritchett RN Allergies As of Date: 02/20/2025 Noted Allergy Reaction ALMOND 09/14/2020 16 - Unknown AMOXICILLIN 09/14/2020 2 - Rash Date Reviewed: 03/11/2024 Reviewed by: Missy Calhoun MD - Fully Assessed Reason for Visit: Orders [681] Primary Visit Diagnosis:Encounter for screening mammogram for malignant neoplasm of breast [Z12.31] Order(s):MITZY SCREENING W ELAN [[id number]] Order #: [id number] FUTURE Prescriptions as of 02/20/2025 - turmeric 400 mg cap - woqvdnjyo-jxdqzsa-eue young-manga 361-223-469-2 mg pwpk - potassium chloride 20 mEq TbER Take 1 tablet by mouth once daily. - lactobacillus combination no.4 (PROBIOTIC) 3 billion cell cap - amLODIPine (NORVASC) 5 mg tablet Take 5 mg by mouth once daily. - MAGNESIUM ORAL Take by mouth. - metroNIDAZOLE 1 % gel Apply to affected area. - azelaic acid 15 % foam Apply to affected area. - CALCIUM 250 MG TAB Take one(1) tablet twice daily. Meds Comments as of 08/25/2008: All medications have been reviewed today/July 30, 2007 Alexandra Gardiner Lpn All medications reviewed today/August 25, 2008 Sona Davis Rn Problem List As Of Date 02/20/2025 Noted Resolved SUPERVIS NORMAL 1ST PREG [Z34.00] 08/31/2005 04/16/2006 MILD PREECLAMP-DEL W P/P [NOS2920] 04/16/2006 06/27/2006 Mixed hyperlipidemia [E78.2] 12/11/2006 09/18/2012 Benign Essential Hypertension Antepartum [O10.0*10/05/2008 05/07/2009 Essential hypertension, benign [I10] 11/23/2009 09/18/2012 Psoriasis [L40.9] 11/03/2010 09/18/2012 Routine general medical examination at [facility]*07/03/2011 12/26/2011 Class: Chronic Routine gynecological examination [Z01.419] 07/03/2011 12/26/2011 Class: Chronic Spotting in early [O26.859] 12/19/2011 06/14/2012 Supervision of other high-risk (V23.89*/12/201109/16/2012 Rhinitis [J31.0] 09/18/2012 Encounter Status:Closed by JAREK PETERS on 02/20/25 Normal [facility] Gastroenterology Visit Repor ton 02-10-2025 Gastroenterology Visit Report [facility] Gastroenterology [address] [place] [address] OFFICE VISIT Date of Service: 02/10/25 MR#: [id number] Acct: [id number] Name: ARLETH RODAS Rep #: [id number] : 1980 Provider: MAYA Horner Age/Sex: 44/F Location: [facility] [place] Status: Signed with Addenda ADDENDUM by MAYA Horner on 02/10/25 at 1007 HPI Details: ARLETH RODAS, is a 44 F who presents to the office today for Physical Exam Const alert General Appearance: cooperative Cardio regular rate and regular rhythm GI normal to inspection, nondistended, normoactive bowel sounds Auscultation: normoactive bowel sounds Palpation: soft 02/10/25 1007 Date Keily Franz cc: * Signed Intake Vital Signs 07/12/22 10:37 Height 5 ft 7 in Intake Visit Reasons: 6 M FU Chief Complaint: abdominal pain Allergies almond Allergy (Mild, Verified 02/10/25 09:45) sore in mouth amoxicillin Allergy (Mild, Verified 02/10/25 09:45) rash Medications ???Medication ???Instructions ???Recorded ???Confirmed ???Type turmeric 400 mg capsule 450 mg PO DAILY 07/26/21 02/10/25 History magnesium 30 mg tablet 30 mg PO DAILY 12/29/21 02/10/25 H istory vitamin C 50 mg-B5 125 mg-DMAE tab PO 10/11/23 02/10/25 History 12.5 un-cpohgxhfa-irxjxbwz -herb tablet (Adrenal Optimizer) Nurse's Note: Patient stated she is having some of the same issues as before due to some high stress levels this past season. Patient states she is having some constipation and diarrhea. But she thinks that she had a virus that caused the diarrhea and then the constipation followed after. When she had the diarrhea she had some nausea and a lot of bloating. [facility] Medical History Health care maintenance Obesity (BMI 30.0-34.9) Hyperlipidemia Muscle cramps Menstrual irregularity History of steroid therapy Arthritis High cholesterol Diverticulosis Non-smoker Leg cramps History of edema Abdominal discomfort Hypertension Psoriasis Surgical History History of surgery History of surgery Ganglion cyst Family History Grandmother Breast cancer Thyroid disorder Father Diabetes Cancer Mother Hypertension Psoriasis Grandfather Psoriasis Brother Psoriasis Sister Psoriasis Social History Smoking Status: Never smoker alcohol intake: never substance use type: does not use HPI HPI Chief Complaint: abdominal pain Details: ARLETH RODAS, is a 44 F who presents to the office today for f/u. *BGI established 07.08.21 with PCP referral. Abdominal pain radiating into her back with subsequent diarrhea 4-6 times/day and constipation when pain not present. PCP attempted dicyclomine, stopped as ineffective. CT abd/pel 07.22.21 with findings of diverticulosis. Borderline lymphadenopathy with enlarged nodes no greater than 100mm in diameter. Mild degenerative changes of lumbar spine. EGD 08.02.21 with findings of LA Grade A reflux esophagitis; gastritis; duodenitis, Smiley gland hyperplasia. PPI taper and sucralfate, ended. OV 09.15. Feels she is doing well at this time. BM occurring daily without difficulty. Continues to have some intermittent upper abdominal discomfort that is short lived. Continues with hyoscyamine daily. Start doxycycline, ended. OV 01.12.22 Doing about the same as previously with abdominal pain, subsequent diarrhea and constipation on other days. She had concerns about utilizing levsin and reglan which she attempted a couple of times and did not feel they helped so she did not continue. Reports that midol is helpful but prevents her sleep. Met with a air intercept controller who felt that she should pursue the endometriosis aspect. Start hyoscyamine, minimally helpful and reglan, ineffective stopped . OV 8.. continues to have abdominal pain/discomfort. Midol is helpful to stop cramping but causes sleep interruption. Start scheduled hyoscyamine. OV 06.28. doing well. Taking levsin 1-2/day with fluctuating BM based on amount that she is taking, currently having 1BM/day. Start diet modification and intermittent fasting. Continue high fiber diet and levsin OV 09.15. doing well overall. Continues with hyoscyamine but continues to have upper abdominal discomfort. BM occur daily without difficulty. Symptoms have improved with improvement of menstrual cycle; suspect endometriosis. OV 01.12.23 abdominal has been minimal. BM are overall very good; Sunday routines are interrupted and experiences constipation that then resolve. OV 8.18.23 abdominal pain has mostly resolved; (more content not included)... Normal [facility] Gastroenterology Visit Repor ton 07-16-2024 Gastroenterology Visit Report [facility] Gastroenterology [address] [place] [address] OFFICE VISIT Date of Service: 07/16/24 MR#: [id number] Acct: [id number] Name: ARLETH RODAS Rep #: [id number] : 1980 Provider: Mellissa Cook DO Age/Sex: 44/F Location: [facility] [place] Status: Signed Intake Vital Signs 07/12/22 10:37 Height 5 ft 7 in Intake Visit Reasons: 6 M FU Chief Complaint: follow up constipation/diarrhea Allergies almond Allergy (Mild, Verified 10/11/23 10:32) sore in mouth amoxicillin Allergy (Mild, Verified 10/11/23 10:32) rash Medications ???Medication ???Instructions ???Recorded ???Confirmed ???Type turmeric 400 mg capsule 450 mg PO DAILY 07/26/21 07/16/24 History magnesium 30 mg tablet 30 mg PO DAILY 12/29/21 07/16/24 History vitamin C 50 mg-B5 125 mg-DMAE tab PO 10/11/23 07/16/24 History 12.5 hq-wsusyzegb-phgkohft -herb tablet (Adrenal Optimizer) PFSH Medical History (Updated 04/20/23 @ 10:[address] Mellissa Cook DO) Health care maintenance Obesity (BMI 30.0-34.9) Hyperlipidemia Muscle cramps Menstrual irregularity History of steroid therapy Arthritis High cholesterol Diverticulosis Non-smoker Leg cramps History of edema Abdominal discomfort Hypertension Psoriasis Surgical History History of surgery History of surgery Ganglion cyst Family History Grandmother Breast cancer Thyroid disorder Father Diabetes Cancer Mother Hypertension Psoriasis Grandfather Psoriasis Brother Psoriasis Sister Psoriasis Social History Smoking Status: Never smoker alcohol intake: never substance use type: does not use HPI HPI Chief Complaint: follow up constipation/diarrhea Details: ARLETH ORDAS, is a 44 F who presents to the office today for follow up. *BGI established 07.08.21 with PCP referral. Abdominal pain radiating into her back with subsequent diarrhea 4-6 times/day and constipation when pain not present. PCP attempted dicyclomine, stopped as ineffective. CT abd/pel 07.22.21 with findings of diverticulosis. Borderline lymphadenopathy with enlarged nodes no greater than 100mm in diameter. Mild degenerative changes of lumbar spine. EGD 08.02.21 with findings of LA Grade A reflux esophagitis; gastritis; duodenitis, Smiley gland hyperplasia. PPI taper and sucralfate, ended. OV 09.15.21 Feels she is doing well at this time. BM occurring daily without difficulty. Continues to have some intermittent upper abdominal discomfort that is short lived. Continues with hyoscyamine daily. Start doxycycline, ended. OV 01.12.22 Doing about the same as previously with abdominal pain, subsequent diarrhea and constipation on other days. She had concerns about utilizing levsin and reglan which she attempted a couple of times and did not feel they helped so she did not continue. Reports that midol is helpful but prevents her sleep. Met with a air intercept controller who felt that she should pursue the endometriosis aspect. Start hyoscyamine, minimally helpful and reglan, ineffective stopped . OV .09.24 continues to have abdominal pain/discomfort. Midol is helpful to stop cramping but causes sleep interruption. Start scheduled hyoscyamine. OV 06.28. doing well. Taking levsin 1-2/day with fluctuating BM based on amount that she is taking, currently having 1BM/day. Start diet modification and intermittent fasting. Continue high fiber diet and levsin OV 09.15.22 doing well overall. Continues with hyoscyamine but continues to have upper abdominal discomfort. BM occur daily without difficulty. Symptoms have improved with improvement of menstrual cycle; suspect endometriosis. OV 01.12.23 abdominal has been minimal. BM are overall very good; Sunday routines are interrupted and experiences constipation that then resolve. OV 04.20.23 abdominal pain has mostly resolved; noticed that when her periods are irregular she does have abdominal discomfort, takes homeopathic cyclene that is helpful with menstrual regularity and with this her pain has resolved. OV 11.13.24 pt reports she is feeling well overall and denies GI symptoms of concern at this time. Pt reports occasional bloating after she eats, but states it seems to be worse around her menstrual cycle. ROS Const Constitutional: Positive for fatigue; No fever(s) or weight change ENT ENT: No difficulty swallowing Gastro GI: Positive for bloating and excessive flatus; No abdominal pain, belching, change in bowel habits, change in stool character, coffee ground emesis, constipation, cramping, diarrhea, heartburn, difficulty swallowing, feeling full early, incontinent of stools, Vomiting blood/hematemesis, Blood in (more content not included)... Normal [facility] MITZY SCREENINGon 11-10-2022 [facility] Absolute lymphocyte countOrd ered By: Dr. Agosto on 10-20-2022 Lymphocytes Auto (Unsp spec) [#/Vol] 2.51 10*3/uL 0.83-4.51 [facility] Basophil percentageOrdered B y: Dr. Agosto on 10-20-2022 Basophil percentage 3.4 mg/dL 2.5-4.9 [facility] Basophils/100 WBC (Bld) 0.6 % 0-1 [facility] Bilirubin [Mass/Vol] 0.70 mg/dL 0.20-1.00 [facility] Comment on above: For patients on eltr ombopag therapy, use of Dimension Salter Path TBIL is not recommended. Chloride [Moles/Vol] 103 mmol/L 98-107 [facility] Cholesterol [Mass/Vol] 273 mg/dL <200 [facility] Comment on above: <200 mg/dL Desirable 200-240 mg/dL Borderline >240 mg/dL High Risk Eosinophils/100 WBC (Bld) 1.3 % 0-5 [facility] Glucose [Mass/Vol] 93 mg/dL 74-106 [facility] Neutrophils (Bld) [#/Vol] 3.3 10*3/uL 2.0-7.7 [facility] Neutrophils/100 WBC (Bld) 51.5 % 47-70 [facility] Potassium [Moles/Vol] 3.8 mmol/L 3.5-5.[address] [facility] Protein [Mass/Vol] 7.3 g/dL 6.4-8.2 [facility] Sodium [Moles/Vol] 138 mmol/L 136-145 [facility] Triglyceride [Mass/Vol] 199 mg/dL <199 [facility] Comment on above: The drugs N-Acetylcy steine and Metamizole may falsely depress this assay.Serum Triglycerides Reference Interval Normal <150 mg/dL Borderline high 150 - 199 mg/dL High 200 - 499 mg/dL Very High > or = 500 mg/dL WBC (Bld) [#/Vol] 6.4 10*3/uL 4.4-11.0 [facility] Blood erythrocytes count (nu mber/volume)Ordered By: Dr. Agosto on 10-20-2022 RBC (Bld) [#/Vol] 4.79 10*6/uL 4.2-5.4 [facility] Blood hemoglobin measurement (mass/volume)Ordered By: Dr. Agosto on 10-20-2022 Hemoglobin (Bld) [Mass/Vol] 14.9 g/dL 12.0-15.0 [facility] Blood lymphocytes/100 leukoc ytesOrdered By: Dr. Agosto on 10-20-2022 Lymphocytes/100 WBC (Bld) 39.5 % 19-41 [facility] Blood monocytes/100 leukocyt esOrdered By: Dr. Agosto on 10-20-2022 Monocytes/100 WBC (Bld) 6.8 % 0-10 [facility] Blood platelet mean volumeOr dered By: Dr. Agosto on 10-20-2022 Platelet mean volume (Bld) [Entitic vol] 10.2 fL 6.2-12.0 [facility] Determination of erythrocyte mean corpuscular volume (MCV)Ordered By: Dr. Agosto on 10-20-2022 MCV (RBC) [Entitic vol] 92.9 fL 81-99 [facility] Hematocrit Auto (Bld) [Volum e fraction]Ordered By: Dr. Agosto on 10-20-2022 Hematocrit (Bld) [Volume fraction] 44.5 % 37-47 [facility] Laboratory - Chemistry and C hemistry - challengeOrdered By: Dr. Agosto on 10-20-2022 ALP [Catalytic activity/Vol] 66 U/L 45-117 [facility] ALT [Catalytic activity/Vol] 29 U/L 13-56 [facility] CO2 [Moles/Vol] 28.0 mmol/L 21.0-32.0 [facility] Globulin (S) [Mass/Vol] 3.6 g/dL 2.2-4.2 [facility] Magnesium [Mass/Vol] 2.1 mg/dL 1.6-2.6 [facility] Urea nitrogen/Creatinine [Mass ratio] 16.5 mg/mg 10-20 [facility] Laboratory - Hematology and Cell countsOrdered By: Dr. Agosto on 10-20-2022 Erythrocyte distribution width (RBC) [Entitic vol] 42.9 fL 35.1-43.9 [facility] Erythrocyte distribution width (RBC) [Ratio] 12.5 % 11.6-14.6 [facility] Immature granulocytes/100 WBC (Bld) 0.300 % 0.0-0.9 [facility] Comment on above: IG% - Immature Granu locytes (promyelocytes, myelocytes and metamyelocytes) > 1% indicates that a LEFT SHIFT is Present. MCH (RBC) [Entitic mass] 31.1 pg 27.0-32.0 [facility] Nucleated RBC/100 WBC (Bld) [Ratio] 0 % 0-5 [facility] MCHC Auto (RBC) [Mass/Vol]Or dered By: Dr. Agosto on 10-20-2022 MCHC (RBC) [Mass/Vol] 33.5 g/dL 32-[address] [facility] No Panel InformationOrdered By: Dr. Agosto on 10-20-2022 Estimated GFR (MDRD) Amer 94 mL/min >60 [facility] Comment on above: GFR Calc Estimated GFR (MDRD) Non-Af Amer 77 mL/min >60 [facility] Comment on above: Non- GFR Calc Platelets bldOrdered By: Dr. Agosto on 10-20-2022 Platelets (Bld) [#/Vol] 256 10*3/uL 150-450 [facility] Serum or plasma albumin blanca urement (mass/volume)Ordered By: Dr. Agosto on 10-20-2022 Albumin [Mass/Vol] 3.7 g/dL 3.2-5.0 [facility] Serum or plasma albumin/glob ulin mass ratioOrdered By: Dr. Agosto on 10-20-2022 Albumin/Globulin [Mass ratio] 1.0 {ratio} 0.9-2.4 [facility] Serum or plasma calcium blanca urement (mass/volume)Ordered By: Dr. Agosto on 10-20-2022 Calcium [Mass/Vol] 8.8 mg/dL 8.5-10.1 [facility] Serum or plasma cholesterol in HDL measurement (mass/volume)Ordered By: Dr. Agosto on 10-20-2022 Cholesterol in HDL [Mass/Vol] 56 mg/dL >40 [facility] Comment on above: The drugs N-Acetylcy steine and Metamizole may falsely depress this assay. Reference Range HDL <40 mg/dL Low HDL Cholesterol HDL >or= 60 mg/dL High HDL Cholesterol Serum or plasma cholesterol in VLDL measurement (mass/volume)Ordered By: Dr. Agosto on 10-20-2022 Cholesterol in VLDL [Mass/Vol] 40 mg/dL 5-40 [facility] Serum or plasma creatinine m easurement (mass/volume)Ordered By: Dr. Agosto on 10-20-2022 Creatinine [Mass/Vol] 0.85 mg/dL 0.55-1.[address] [facility] Comment on above: The validity of the calculated GFR & GFRAA in patients over 70 years has not been determined. Clinical correlation is essential. Serum or plasma low density lipoprotein (LDL) cholesterol measurement (mass/volume)Ordered By: Dr. Agosto on 10-20-2022 Cholesterol in LDL [Mass/Vol] 177 mg/dL 0-130 [facility] Serum or plasma urea nitroge n measurement (mass/volume)Ordered By: Dr. Agosto on 10-20-2022 Urea nitrogen [Mass/Vol] 14 mg/dL 7-18 [facility] Thin prep Papanicolaou smear with manual screeningOrdered By: Dr. Agosto on 10-20-2022 Thin prep Papanicolaou smear with manual screening 24 U/L 15-37 [facility] Thin prep Papanicolaou smear with manual screening 7 5-15 [facility] MITZY Cortes 022 [facility] Ry 02-16-2022 CNPN Telephone (AGENDOG) ARLETH RODAS ([id number]) 1980 F Date Time Provider Department 02/16/22 ENDO AGENDOG During your visit today, we recorded the following information about you: Paige Bal 02/16/2022 1:[address] ROJAS WOULD YOU SEE THIS PATIENT? Faxed Referral Attempted to contact this patient. Left a voicemail for them to call back to schedule. Referred by: SAGRARIO MELLISSA DX: r10.9 uNSPECIFIED ABDOMINAL PAIN, ABDOMINAL PAIN IS POSSIBLY SECONDARY TO HORMONAL CHANGES Referred to: ANY If patient is contacted please update all account info. Move document into scheduled doctor's file or move to Unable to Schedule folder after 3 attempts. Paige Rojas MD 02/16/2022 2:07 PM Signed Usually we do not see patients for abdominal pain and that there is another specific endocrine diagnosis. Paige Bal 02/16/2022 2:[address] you [address] Rojas, I did call and advise the referring office that we did not see for this diagnosis. Thank you Paige Bal February 16, 2022 2:16 PM Allergies As of Date: 02/16/2022 Noted Allergy Reaction ALMOND 09/14/2020 16 - Unknown AMOXICILLIN 09/14/2020 2 - Rash Date Reviewed: 10/11/2021 Reviewed by: Jarek Peters MD - Fully Assessed Reason for Visit: Appointment [186] Cmt: NEW PATIENT Prescriptions as of 02/16/2022 - turmeric 400 mg cap - qnozkshaq-bdvqmmg-cls young-manga 532-486-800-2 mg pwpk - potassium chloride 20 mEq TbER Take 1 tablet by mouth once daily. - pantoprazole (PROTONIX) 40 mg tablet TAKE 1 TABLET BY MOUTH TWICE A DAY FOR 8 WEEKS THEN TAKE 1 TABLET DAILY FOR 8 WEEKS THEN STOP - lactobacillus combination no.4 (PROBIOTIC) 3 billion cell cap - norgestimate 0.25 mg-ethinyl estradiol 35 mcg (SPRINTEC) 0.25-35 mg-mcg per tablet Take 1 tablet by mouth once daily. - amLODIPine (NORVASC) 5 mg tablet Take 5 mg by mouth once daily. - MAGNESIUM ORAL Take by mouth. - ZINC ORAL Take by mouth. - VITAMIN B COMPLEX ORAL Take by mouth. - ketoconazole (NIZORAL) 2 % shampoo - metroNIDAZOLE 1 % gel Apply to affected area. - azelaic acid 15 % foam Apply to affected area. - multivitamin tablet Take 1 tablet by mouth once daily. - Ascorbic Acid (VITAMIN C) 1,000 mg tablet Take 1,000 mg by mouth once daily. - OMEGA-3S/DHA/EPA/FISH OIL/D3 (VITAMIN-D + OMEGA-3 ORAL) Take by mouth. - CALCIUM 250 MG TAB Take one(1) tablet twice daily. - glucosamine sulfate(GLUCOSAMINE 500 MG TAB) Take one(1) tablet three(3) times daily.. Meds Comments as of 08/25/2008: All medications have been reviewed today/July 30, 2007 Alexandra Gardiner Lpn All medications reviewed today/August 25, 2008 Sona Davis Rn Problem List As Of Date 02/16/2022 Noted Resolved SUPERVIS NORMAL 1ST PREG [Z34.00] 08/31/2005 04/16/2006 MILD PREECLAMP-DEL W P/P [AJS0251] 04/16/2006 06/27/2006 Mixed hyperlipidemia [E78.2] 12/11/2006 09/18/2012 Benign Essential Hypertension Antepartum [O10.0*10/05/2008 05/07/2009 Essential hypertension, benign [I10] 11/23/2009 09/18/2012 Psoriasis [L40.9] 11/03/2010 09/18/2012 Routine general medical examination at [facility]*07/03/2011 12/26/2011 Class: Chronic Routine gynecological examination [Z01.419] 07/03/2011 12/26/2011 Class: Chronic Spotting in early [O26.859] 12/19/2011 06/14/2012 Supervision of other high-risk (V23.89*12/0309/16/2012 Rhinitis [J31.0] 09/18/2012 Encounter Status:Closed by EDIN ROJAS on 02/16/22 Normal [facility] Vital Signs Date Time Vital Sign Value Performing Clinician Keon guthrie 04-07-2025 15:15-0400 Body temperature 97.2 [degF] Dr. Coral Agosto MD Work Phone: [facility] 04-07-2025 15:15-0400 Diastolic blood pressure 87 mm[Hg] Dr. Coral Agosto MD Work Phone: [facility] 04-07-2025 15:15-0400 Heart rate 64 /min Dr. Coral Agosto MD Work Phone: [facility] 04-07-2025 15:15-0400 Respiratory rate 16 /min Dr. Coral Agosto MD Work Phone: [facility] 04-07-2025 15:15-0400 SaO2% (BldA) [Mass fraction] 100 % Dr. Coral Agosto MD Work Phone: [facility] 04-07-2025 15:15-0400 Systolic blood pressure 138 mm[Hg] Dr. Coral Agosto MD Work Phone: [facility] [facility] 04-07-2025 13:18-0400 Body height [address] Coral Agosto MD Work Phone: [facility] 03-13-2025 13:22-0400 Body height 172.7 cm Missy Calhoun MD Work Phone: [facility] 03-13-2025 13:22-0400 Body mass index (BMI) [Ratio] 29.65 kg/m2 Missy Calhoun MD Work Phone: [facility] 03-13-2025 13:22-0400 Body weight 88.45 kg Missy Calhoun MD Work Phone: [facility] 03-13-2025 13:22-0400 Diastolic blood pressure 82 mm[Hg] Missy Calhoun MD Work Phone: [facility] 03-13-2025 13:22-0400 Systolic blood pressure 124 mm[Hg] Missy Calhoun MD Work Phone: [facility] 03-11-2024 09:50-0400 Body height 172.5 cm Missy Calhoun MD Work Phone: [facility] 03-11-2024 09:50-0400 Body mass index (BMI) [Ratio] 29.51 kg/m2 Missy Calhoun MD Work Phone: [facility] 03-11-2024 09:50-0400 Body weight 87.82 kg Missy Calhoun MD Work Phone: [facility] 03-11-2024 09:50-0400 Diastolic blood pressure 82 mm[Hg] Missy Calhoun MD Work Phone: [facility] 03-11-2024 09:50-0400 Systolic blood pressure 120 mm[Hg] Missy Calhoun MD Work Phone: [facility] 11-07-2022 13:31-0500 Body height 171.5 cm Jarek Peters MD Work Phone: [facility] 11-07-2022 13:31-0500 Body weight 88.45 kg Jarek Peters MD Work Phone: [facility] 11-07-2022 13:31-0500 Diastolic blood pressure 80 mm[Hg] Jarek Peters MD Work Phone: [facility] 11-07-2022 13:31-0500 Systolic blood pressure 126 mm[Hg] Jarek Peters MD Work Phone: [facility] 07-12-2022 10:43-0500 Diastolic blood pressure 88 mm[Hg] Dr. Coral Agosto Work Phone: [facility] 07-12-2022 10:43-0500 Heart rate 86 /min Dr. Coral Agosto Work Phone: [facility] 07-12-2022 10:43-0500 Systolic blood pressure 122 mm[Hg] Dr. Coral Agosto Work Phone: [facility] 07-12-2022 10:37-0500 Body height 170.[address] Coral Agosto Work Phone: [facility] 07-12-2022 10:37-0500 Body mass index (BMI) [Ratio] 30.5 kg/m2 Dr. Coral Agosto Work Phone: [facility] 07-12-2022 10:37-0500 Body temperature 97.4 [degF] Dr. Coral Agosto Work Phone: [facility] 07-12-2022 10:37-0500 Body weight 88.[address] Coral Agosto Work Phone: [facility] 07-12-2022 10:37-0500 Respiratory rate 16 /min Dr. Coral Agosto Work Phone: [facility] 07-12-2022 10:37-0500 SaO2% (BldA) [Mass fraction] 98 % Dr. Coral Agosto Work Phone: [facility] Encounters Encounter Date Encounter Type Care Provider Facility Start: 04-07-2025 ambulatory [facility] Facility :[facility] Start: 04-07-2025 Non-patient / Non-visit Mellissa Stover nd DO -[facility] Start: 04-07-2025 End: 04-07-2025 Admission to same day surgery center Mellissa Cook DO -Endoscopy Work Phone: Start: 04-07-2025 End: 04-07-[address] Coral Agosto MD Work Phone: -Endoscopy Start: 04-02-2025 Encounter for other preprocedural examination [facility] Start: 03-13-2025 End: 03-13-2025 Patient encounter procedure Missy Calhoun MD Work Phone: OB/Gynecology Comment on above: Encounter for gyneco logical examination (general) (routine) without abnormal findings (Primary Dx); Encounter for screening mammogram for breast cancer Start: 03-13-2025 End: 03-13-2025 Patient encounter status Missy Calhoun MD Work Phone: [facility] Start: 03-13-2025 End: 03-13-2025 ambulatory MISSY CALHOUN Facility:[facility] Start: 03-13-2025 Encounter for gynecological examination (general) (routine) without abnormal findings MISSY CALHOUN [facility] Start: 03-13-2025 End: 03-13-2025 Subsequent hospital visit by physician Screen Mammo [facility] Mammogram Comment on above: Encounter for screen ing mammogram for malignant neoplasm of breast [Z12.31] Start: 02-20-2025 End: 02-20-2025 Telephone encounter Missy Calhoun MD Work Phone: OB/Gynecology Comment on above: Orders Start: 02-10-2025 End: 02-10-2025 Patient encounter procedure Keily TREJO -[facility] Work Phone: Start: 02-10-2025 End: 02-10-[address] Coral Agosto MD Work Phone: [facility] Work Phone: Start: 07-16-2024 End: 07-16-2024 ambulatory Mellissa Cook Facility:[facility] Start: 06-13-2024 End: 06-13-2024 ambulatory Immunization Clinic Nurse Klein Work Phone: [facility] [place] Start: 06-13-2024 End: 06-13-2024 Patient encounter procedure Immunization Clinic Nurse [place] Work Phone: [facility] [place] Start: 03-14-2024 Documentation procedure Mammog kishan Coordinator [facility] Start: 03-14-2024 Letter encounter Mammography Coordinator [facility] Start: 03-12-2024 End: 03-12-2024 Subsequent hospital visit by physician Screen Mammo [facility] Mammogram Comment on above: Encounter for screen ing mammogram for breast cancer [Z12.31] Start: 03-11-2024 End: 03-11-2024 Patient encounter procedure Missy Calhoun MD Work Phone: OB/Gynecology Comment on above: Encounter for gyneco logical examination (general) (routine) without abnormal findings (Primary Dx); Encounter for screening mammogram for breast cancer Start: 03-11-2024 End: 03-11-2024 Patient encounter status Missy Calhoun MD Work Phone: [facility] Start: 06-01-2023 End: 06-01-2023 ambulatory Immunization Clinic Nurse [place] Work Phone: [facility] [place] Start: 11-13-2022 Documentation procedure Mammog kishan Coordinator [facility] Start: 11-13-2022 Letter encounter Mammography Coordinator [facility] Start: 11-13-2022 Orders Only Jarek fierro MD Work Phone: OB/Gynecology Comment on above: Abnormal mammogram ( Primary Dx) Start: 11-10-2022 End: 11-10-2022 Patient encounter status Screen Wstr [facility] Start: 11-10-2022 End: 11-10-2022 Subsequent hospital visit by physician Screen Mammo [facility] Mammogram Comment on above: Encounter for gyneco logical examination (general) (routine) without abnormal findings [Z01.419] Start: 11-07-2022 End: 11-07-2022 Patient encounter procedure Jarek Peters MD Work Phone: OB/Gynecology Comment on above: Encounter for gyneco logical examination (general) (routine) without abnormal findings (Primary Dx); Screening for cervical cancer; Encounter for screening for human papillomavirus (HPV); Encounter for screening mammogram for breast cancer Start: 11-07-2022 End: 11-07-2022 Patient encounter status Jarek Peters MD Work Phone: OB/Gynecology Start: 10-20-2022 End: 10-20-[address] Coral Agosto Work Phone: [facility] Work Phone: Start: 10-20-2022 End: 10-20-[address] Coral Agosto Work Phone: [facility] Start: 09-15-2022 End: 09-15-[address] Coral Agosto Work Phone: [facility] Start: 07-12-[address] Coral Agosto Work Phone: [facility] Start: 07-12-2022 End: 07-12-2022 Encounter for general adult medical examination without abnormal findings Dr. Coral Agosto Work Phone: [facility] Start: 07-12-2022 End: 07-12-[address] Coral Agosto Work Phone: [facility] Start: 06-28-2022 End: 06-28-[address] Coral Agosto Work Phone: [facility] Start: 05-23-2022 End: 05-23-2022 Subsequent hospital visit by physician Diagnostic Mammo [facility] Mammogram Start: 05-18-2022 End: 05-18-2022 Patient encounter procedure Nurse Daljit [place] [place] Comment on above: Encounter for immuni zation (Primary Dx) Start: 02-21-2022 Telephone encounter Jarek Peters MD Work Phone: OB/Gynecology Comment on above: Lab Orders Start: 02-13-2022 Telephone encounter Jarek Peters MD Work Phone: OB/Gynecology Comment on above: Orders Start: 07-03-2011 End: 12-26-2011 Patient encounter status Missy Calhoun MD [facility] Procedures Date Procedure Procedure Detail Performing Clinician Start: 04-07-[address] Aure Agosto MD Work Phone: Start: 06-01-2023 INFLUENZA VACCINE, A GE 6 MO - 64 YR, QUADRIVALENT (AFLURIA, FLULAVAL, FLUZONE) Brennen Murphy MD Work Phone: Start: 11-10-2022 End: 11-10-2022 Mammography aJrek Peters MD Work Phone: Start: 05-23-2022 MITZY CLAUDIAG W ELAN RT Britt Peters MD Work Phone: Start: 05-18-2022 INFLUENZA VACCINE QUADRIVALENT 6 MO - 64 YRS IM Armin Sanford MD Work Phone: Start: 10-11-2021 Mammography Jarek barahona MD Work Phone: Start: 11-14-2016 Adult depression screening assessment Jarek Peters MD Work Phone: Start: 07-04-2011 Lipid 1996 panel - S perfecto or Plasma Immunization [place] Work Phone: Plan of Treatment Date Care Activity Detail Author Start: 11-08-2027 HPV TESTING HPV TESTING [facility] Start: 11-08-2027 PAP TESTING PAP TESTING [facility] Start: 11-08-2027 Screening for malign ant neoplasm of cervix Cervical Cancer Screening [facility] Start: 03-16-2026 End: 03-16-2026 Patient encounter procedure Mammogram Comment on above: Encounter for gyneco logical examination (general) (routine) without abnormal findings [Z01.419]; Encounter for screening mammogram for breast cancer [Z12.31] Annual Start: 05-04-2025 Influenza vaccination Influenza Vacc ine (#1) [facility] Start: 04-07-2025 [facility] Start: 03-13-2025 End: 03-13-2025 Patient encounter procedure 03/13/2025 2:30 PM EDT Appointment Mammogram [address] [place] [id number] Mammogram Start: 03-13-2025 End: 03-13-2025 Patient encounter procedure 03/13/2025 1:20 PM EDT Office Visit OB/Gynecology [address] [place] [id number] Missy Calhoun MD [address] [place] [address] 1st and 2nd attempt unable LVM to call back to reschedule /Annual OB/Gynecology Comment on above: 1st and 2nd attempt unable LVM to call back to reschedule /Annual Start: 03-12-2025 Screening for malign ant neoplasm of breast Mammogram Screening [facility] Start: 03-12-2025 End: 03-12-2025 Patient encounter procedure 03/12/2025 1:20 PM EDT Office Visit OB/Gynecology [address] [place] [address] Missy Calhoun MD [address] [place] [address] Annual OB/Gynecology Comment on above: Annual Start: 05-04-2024 Covid-19 Vaccine () Covid-19 Vaccine () [facility] Start: 05-04-2024 Influenza vaccination Influenza Vacc ine (#1) [facility] Start: 03-12-2024 End: 03-12-2024 Patient encounter procedure 03/12/2024 1:10 PM EDT Appointment Mammogram [address] [place] [address] Mammogram Start: 11-11-2023 Mammography [facility] Start: 11-11-2023 Screening for malign ant neoplasm of breast Mammogram Screening [facility] Start: 09-03-2023 Behavioral Health Screening Behavioral Health Screening [facility] Start: 05-21-2023 HPV TESTING HPV TESTING [facility] Start: 05-21-2023 PAP TESTING PAP TESTING [facility] Start: 05-04-2023 Covid-19 Vaccine () Covid-19 Vaccine () [facility] Start: 2023 Cologuard (FIT-DNA) Cologuard (FIT-D NA) [facility] Start: 2023 Colonoscopy Colonoscopy [facility] Start: 2023 Colorectal Cancer Screening Colorectal Cancer Screening [facility] Start: [address] COLONOGRAPHY [facility] Start: 2023 Diabetes Screening Diabetes Screenin g [facility] Start: 2023 Fecal Occult Blood Fecal Occult Bloo d [facility] Start: 2023 Lipid 1996 panel - Serum or Plasma Lipid Screening [facility] Start: 2023 Lipid [facility] Start: 2023 Screening for malign ant neoplasm of colon [facility] Start: 2023 [facility] Start: 10-11-2022 Mammography MAMMOGRAM [facility] Start: 09-03-2022 DEPRESSION ASSESSMENT DEPRESSION ASS ESSMENT [facility] Start: 05-04-2022 Influenza vaccination INFLUENZA (#1) [facility] Start: 10-13-2021 COVID-19 VACCINE (4 - Booster for Moderna series) COVID-19 VACCINE (4 - Booster for Moderna series) [facility] Start: 10-13-2021 Covid-19 Vaccine (4 - Moderna series) Covid-19 Vaccine (4 - Moderna series) [facility] Start: 07-03-2021 Urine microalbumin profile [facility] Start: 11-14-2017 Adult depression screening assessment DEPRESSION SCREENING [facility] Start: 1997 Hepatitis B Vaccine (1 of 3 - 19+ 3-dose series) Hepatitis B Vaccine (1 of 3 - 19+ 3-dose series) [facility] Start: 02-28-1996 Anxiety Screening Anxiety Screening [facility] Start: 02-28-1996 Depression Screening Depression Scre ening [facility] Start: 02-28-1996 HEPATITIS C SCREENING HEPATITIS C [facility] Start: 02-28-1996 Hepatitis C screening Hepatitis C [facility] Start: 1978 HEPATITIS B (1 of 3 - 3-dose series) HEPATITIS B (1 of 3 - 3-dose series) [facility] Start: 1978 Hepatitis B Vaccine (1 of 3 - 3-dose series) Hepatitis B Vaccine (1 of 3 - 3-dose series) [facility] End: 04-10-2025 DBT Breast - bilateral screening MITZY SCREENING W ELAN Radiology Routine Encounter for screening mammogram for breast cancer 1 Occurrences starting 03/11/2024 until 04/10/2025 [facility] Work Phone: Comment on above: 1 Occurrences starti ng 03/11/2024 until 04/10/2025 DBT Breast - bilater al screening MITZY SCREENING W ELAN Radiology Routine Encounter for screening mammogram for breast cancer 03/12/2024 1:52 PM EDT [facility] Work Phone: End: 03-22-2026 DBT Breast - bilateral screening MITZY SCREENING W ELAN Radiology Routine Encounter for screening mammogram for malignant neoplasm of breast 1 Occurrences starting 02/20/2025 until 03/22/2026 [facility] Work Phone: Comment on above: 1 Occurrences starti ng 02/20/2025 until 03/22/2026 End: 04-12-2026 DBT Breast - bilateral screening MITZY SCREENING W ELAN Radiology Routine Encounter for gynecological examination (general) (routine) without abnormal findings Encounter for screening mammogram for breast cancer 1 Occurrences starting 03/13/2025 until 04/12/2026 [facility] Work Phone: Comment on above: 1 Occurrences starti ng 03/13/2025 until 04/12/2026 DBT Breast - bilater al screening MITZY SCREENING W ELAN Radiology Routine Encounter for screening mammogram for malignant neoplasm of breast 03/13/2025 2:05 PM EDT [facility] Work Phone: End: 03-15-2023 Diagnostic mammography computer-aided detcj uni MITZY DIAGNOSTIC RT Radiology Routine Category 3 mammography result with short follow-up interval suggested for probably benign finding 1 Occurrences starting 02/14/2022 until 03/15/2023 [facility] Work Phone: Comment on above: 1 Occurrences starti ng 02/14/2022 until 03/15/2023 End: 12-13-2023 Diagnostic mammography computer-aided detcj uni MITZY DIAGNOSTIC LT Radiology Routine Abnormal mammogram 1 Occurrences starting 11/13/2022 until 12/13/2023 [facility] Work Phone: Comment on above: 1 Occurrences starti ng 11/13/2022 until 12/13/2023 End: 12-07-2023 MITZY SCREENING MITZY SCREENING Radiology Routine Encounter for screening mammogram for breast cancer 1 Occurrences starting 11/07/2022 until 12/07/2023 [facility] Work Phone: Comment on above: 1 Occurrences starti ng 11/07/2022 until 12/07/2023 PAP FLUID CERVICAL SCREENING PAP FLUID CERVICAL SCREENING Lab Routine Screening for cervical cancer Encounter for screening for human papillomavirus (HPV) 11/07/2022 1:57 PM EST [facility] Work Phone: End: 03-15-2023 Us breast uni real time with image limited US BREAST LTD RT Radiology Routine Category 3 mammography result with short follow-up interval suggested for probably benign finding 1 Occurrences starting 02/14/2022 until 03/15/2023 [facility] Work Phone: Comment on above: 1 Occurrences starti ng 02/14/2022 until 03/15/2023 End: 12-13-2023 Us breast uni real time with image limited US BREAST LTD LT Radiology Routine Abnormal mammogram 1 Occurrences starting 11/13/2022 until 12/13/2023 [facility] Work Phone: Comment on above: 1 Occurrences starti ng 11/13/2022 until 12/13/2023 [facility] Immunizations Immunization Date Immunization Notes Care Provider [facility] 06-13-2024 influenza, seasonal, injectable Immunization [place] Work Phone: [facility] 06-13-2024 influenza virus vaccine, unspecified formulation Missy Calhoun MD Work Phone: [facility] 06-01-2023 influenza, injectabl e, quadrivalent, contains preservative Immunization [place] Work Phone: [facility] Work Phone: 06-01-2023 influenza virus vaccine, unspecified formulation Missy Calhoun MD Work Phone: [facility] 05-18-2022 influenza, injectabl e, quadrivalent, contains preservative [facility] 05-13-[facility]21 influenza, injectabl e, quadrivalent, contains preservative Jarek Peters MD Work Phone: [facility] Work Phone: 05-25-2020 influenza, injectabl e, quadrivalent, contains preservative Jarek Peters MD Work Phone: [facility] 06-27-2019 influenza, injectabl e, quadrivalent, contains preservative Jarek Peters MD Work Phone: [facility] 06-15-2018 influenza, injectabl e, quadrivalent, contains preservative Jarek Peters MD Work Phone: [facility] 07-13-2017 influenza, injectabl e, quadrivalent, contains preservative Jarek Peters MD Work Phone: [facility] Work Phone: 07-17-2015 influenza, injectabl e, quadrivalent, contains preservative Jarek Peters MD Work Phone: [facility] Work Phone: 06-18-2014 influenza, seasonal, injectable Jarek Peters MD Work Phone: [facility] 06-14-2013 influenza virus vaccine, unspecified formulation Jarek Peters MD Work Phone: [facility] 06-01-2012 influenza virus vaccine, unspecified formulation Jaerk Peters MD Work Phone: [facility] 07-03-2011 influenza virus vaccine, unspecified formulation Jarek Peters MD Work Phone: [facility] Work Phone: 07-03-2011 tetanus toxoid, reduced diphtheria toxoid, and acellular pertussis vaccine, adsorbed Jarek Peters MD Work Phone: [facility] Work Phone: 06-17-2009 influenza virus vaccine, unspecified formulation Jarek Peters MD Work Phone: [facility] Payers Date Payer Category Payer Self-pay [id number] 2019 Private Health Insurance MMO SU[employer] PPO [id number] 2019 Unknown MMO MMO [employer] [id number] 2019-Present [phone] [address] [place] [address] PPO [id number] 2019 Unknown [id number] 2006 Unknown [id number] Unknown [id number] Unknown [id number] Social History Date Type Detail Facility Start: 12-26-2011 End: 04-01-2025 Tobacco smoking status NHIS Never smoked tobacco [facility] Work Phone: Start: 10-11-2021 End: 03-13-2025 Alcohol intake Current drinker of alcohol (finding) [facility] Start: 12-11-2016 History SDOH Alcohol Comment rare, several times a year [facility] Start: 1980 Sex Assigned At Female [facility] Start: 02-07-2022 End: 02-17-2022 Exposure to SARS-CoV-2 (event) Not sure [facility] Start: 12-26-2011 End: 11-07-2022 Tobacco use and exposure Smokeless tobacco non-user [facility] Work Phone: Start: 09-15-2022 Tobacco smoking stat us RIIS Unknown if ever smoked [facility] Start: 11-07-2022 End: 06-01-2023 History of Social function [facility] Start: 11-07-2022 End: 06-01-2023 Tobacco use panel [facility] National Score (1-10 0), lower number is lower risk 64 [facility] Start: 10-06-2021 Gender identity Identifies as female gender (finding) [facility] Start: 10-06-2021 Sexual orientation Choose not to dis close [facility] Goals Date Patient Goal Desired Activity /State Functional Status Date Assessment Result Facility 01-01-2015 Are you deaf, or do you have serious difficulty hearing No 01/01/2015 9:44 AM Heather Pineda Ma [facility] 01-01-2015 Are you blind, or do you have serious difficulty seeing, even when wearing glasses No 01/01/2015 9:44 AM Heather Pineda Ma [facility] 01-01-2015 Do you have serious difficulty walking or climbing stairs No 01/01/2015 9:44 AM Heather Pineda Ma [facility] 01-01-2015 Do you have difficul ty dressing or bathing No 01/01/2015 9:44 AM Heather Pineda Ma [facility] 01-01-2015 Because of a physica l, mental, or emotional condition, do you have difficulty doing errands alone such as visiting a physician's office or shopping No 01/01/2015 9:44 AM Heather Pineda Ma [facility] Mental Status Date Assessment Result Facility 04-07-2025 Cognitive function Level Of Cons ciousness Awake;Alert;Appropriate [facility] Work Phone: 04-07-2025 Cognitive function Voice/Name [facility] Work Phone: 01-01-2015 Because of a physica l, mental, or emotional condition, do you have serious difficulty concentrating, remembering, or making decisions No 01/01/2015 9:44 AM EDT Heather Mayers Ma [facility] Clinical Notes 12-26-2011 to 04-07-2025 Note Date & Type Note Facility 04-07-2025 Procedure note [facility] 04-07-2025 Procedure note [facility] 04-07-2025 History and physical note Note Date/Time April 07, 2025 1:16pm [facility] Medical Records Department [address] [place] [address] History & Physical Exam 04/07/25 1315 MR#: [id number] Acct: [id number] Name: ARLETH RODAS Rep #:[id number] : 1980 45 From: Mellissa Cook DO PCP: Care Physician,No Primary Status :[facility] Location: [place] [address] HPI - General General Date of Admission: 04/07/25 Date of Service: 04/07/25 Chief Complaint: Screening colonoscopy HPI Narrative ARLETH RODAS, is a 45 F who presents today for screening colonoscopy. She has never had a colonoscopy in the past. She does not have any abdominal pain, cramping, chest pain or shortness of breath. [facility] Medical History Wears glasses Bladder disease History of diverticulitis Gastric reflux Health care maintenance Obesity (BMI 30.0-34.9) Hyperlipidemia Muscle cramps Menstrual irregularity Arthritis High cholesterol Diverticulosis Non-smoker Leg cramps History of edema Abdominal discomfort Hypertension Psoriasis Home Medications ?Medication ?Instructions ?Recorded ?Last Taken ?Type turmeric 400 mg capsule 450 mg PO DAILY 07/26/21 Unk nown History magnesium 30 mg tablet 30 mg PO DAILY 12/29/21 Unkn own History vitamin C 50 mg-B5 125 mg-DMAE 1 tab PO DAILY 10/11/23 Unknown History 12.5 vx-aeypoqbwz-vnzcejth-herb tablet (Adrenal Optimizer) [place]-herbal drugs tablet 1 tab PO Q5D 04/01/25 U nknown History Allergy/AdvReac Type Severity Reaction Status Date / Time almond Allergy Mild sore in Verified 04/01/25 10:23 mouth amoxicillin Allergy Mild rash Verified 04/01/25 10:23 Family History Grandmother Breast cancer Thyroid disorder Father Diabetes Cancer Mother Hypertension Psoriasis Grandfather Psoriasis Brother Psoriasis Sister Psoriasis Surgical History History of surgery History of surgery Ganglion cyst Social History Smoking Status: Never smoker alcohol intake: never substance use type: does not use ROS Constitutional Constitutional: Denies fatigue, fever(s), poor appetite, weight gain or weight loss Gastrointestinal Gastrointestinal: Denies belching, bloating, change in bowel habits, change in stool character, chewing difficulty, coffee ground emesis, constipation, cramping, diarrhea, dyspepsia, dysphagia, early satiety, excessive flatus, fecalincontinence, heartburn, hematemesis, hematochezia, hemorrhoids, loose stools, melena, nausea, odynophagia, rectal bleeding, tenesmus, vomiting or weight changes Physical Exam Const alert, oriented x3, no apparent distress and healthy appearing General Appearance: cooperative GI normal to inspection, nondistended, normoactive bowel sounds, soft to palpation,non-tender and non-distended Percussion: normal to percussion Rectal Exam: deferred Assessment & Plan Assessment/Plan (1) Encounter for screening colonoscopy: PLAN: She was explained alternatives, risk and benefits include not withstandingbleeding, infection, sepsis, perforation, need emergent urgent . She will have an ASA of 3. 04/07/25 1316 <Electronically signed by Mellissa Cook DO> Cosigner Signature (if applicable): CC: No Primary Care Physician; Mellissa Cook DO~ Signed [facility] Work Phone: 1(632) 294-858408-05-2025 Consult note [facility] Medical Records Department [address] [place] [address] Anesthesia Postop Eval I 04/07/25 1506 MR#: [id number] Acct: [id number] Name: ARLETH RODAS Rep #:[id number] : 1980 45 From: Solomon FERRELL PCP: Care Physician,No Primary Status :REG SDC Y Race: C Location: [place] [address] Anesthesia: Postop Eval I Current Vital Signs Temperature: 98.6 F Pulse Rate: 77 Blood Pressure: 110/64 Respiratory Rate: 16 Pulse Ox: 100 Assessment Airway patent: Yes Spontaneous unlabored respirations: Yes nausea: No Vomiting: No Anesthesia Complication: No Fluid Hydration Crystalloid volume administer (ml): 400 Total IV fluid infused: 400 Progress Note Anesthesia document: Postop Eval 1 completed: Yes 04/07/25 1507 COMMUNICATION SIGNALS INTELLIGENCE> Date _ Solomon Carter COMMUNICATION SIGNALS INTELLIGENCE Cosigner Signature: Date CC: ~ Signed [facility]08-05-2025 Consult note [facility] Medical Records Department [address] [place] [id number] Pre-Anesthesia Evaluation 04/07/25 1406 MR#: [id number] Acct: [id number] Name: ARLETH RODAS Rep #:[id number] : 1980 45 From: James Wagner PCP: Care Physician,No Primary Status :REG SDC Y Race: C Location: [place] [address] ASA Classification* ASA Classification ASA Classification: 1 Assessment & Plan Anesthesia* Anesthesia Assessment Anesthesia Assessment: Discussed sedation and/or anesthesia options, risks, benefits, and alternatives with patient/parents/legal guardian/POA. Questions invited. The patient/parents/legal guardian/POA seems to understand and agrees to proceedwith anesthesia plan. Reviewed the physical assessment, medical history, allergy history and patient home medications list prior to surgery/procedure/anesthetic and documented any changes. Performed airway and anesthesia risk assessments. Anesthesia Type Anesthesia Type: MAC History Source History Obtained from:: Patient and Chart Anesthesia Focused Assessment* Temperature: 98.6 F Pulse Rate: 73 Blood Pressure: 137/84 Respiratory Rate: 16 Pulse Ox: 100 Oxygen Delivery Method: Room Air Airway Assessment Mouth opens: >3 cm Mallampati Score: II Teeth Condition: Intact Neck Range of motion (ROM): Full ROM Labs Anesthesia Preop lab: CBC WBC 6.4 K/mm3 (4.4-11.0) 10/20/22 11:32 10/20/22 RBC 4.79 M/mm3 (4.2-5.4) 10/20/22 11:32 10/20/22 Hgb 14.9 g/dL (12.0-15.0) 10/20/22 11:32 10/20/22 Hct 44.5 % (37-47) 10/20/22 11:32 10/20/22 Plt Count 256 K/mm3 (150-450) 10/20/22 11:32 10/20/22 CHEMISTRY Potassium 3.8 mmol/L (3.5-5.1) 10/20/22 11:32 10/20/22 Sodium 138 mmol/L (136-145) 10/20/22 11:32 10/20/22 Magnesium 2.1 mg/dL (1.6-2.6) 10/20/22 11:32 10/20/22 Phosphorus 3.4 mg/dL (2.5-4.9) 10/20/22 11:32 10/20/22 BUN 14 mg/dL (7-18) 10/20/22 11:32 10/20/22 Creatinine 0.85 mg/dL (0.55-1.02) 10/20/22 11:32 10/20/22 Glucose 93 mg/dL (74-106) 10/20/22 11:32 10/20/22 TSH 2.45 uIU/mL (0.358-3.74) 09/22/21 15:29 COAG Urine Test Negative Negative 04/07/25 13:12 04/07/25 Pre-Assessment Diagnosis/Proposed Procedure Planned Operative Procedure(s): COLONOSCOPY Anesthesia History Anesthesia History - skid adzer: Anesthesia History - skid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 History of edema Abdominal discomfort Hypertension Psoriasis Home Medications ?Medication ?Instructions ?Recorded ?Last Taken ?Type turmeric 400 mg capsule 450 mg PO DAILY 07/26/21 Unk nown History magnesium 30 mg tablet 30 mg PO DAILY 12/29/21 Unkn own History vitamin C 50 mg-B5 125 mg-DMAE 1 tab PO DAILY 10/11/23 Unknown History 12.5 nv-jakvvcczn-msptfdcn-herb tablet (Adrenal Optimizer) Pulsatilla-herbal drugs tablet 1 tab PO Q5D 04/01/25 U nknown History Allergy/AdvReac Type Severity Reaction Status Date / Time almond Allergy Mild sore in Verified 04/01/25 10:23 mouth amoxicillin Allergy Mild rash Verified 04/01/25 10:23 Family History Grandmother Breast cancer Thyroid disorder Father Diabetes Cancer Mother Hypertension Psoriasis Grandfather Psoriasis Brother Psoriasis Sister Psoriasis Surgical History History of surgery History of surgery Ganglion cyst Social History Smoking Status: Never smoker alcohol intake: never substance use type: does not use Review of Systems (Anesthesia) ROS Narrative System reviewed and no additional complaints, except as documented. 04/07/25 1409 <Electronically signed by James Muller MD> Date _ James Muller MD Cosigner Signature: Date CC: ~ Signed [facility] Work Phone: Consult note Author Solomon Carter [facility] Note Date/Time April 07, 2025 3:0 7pm [facility] Medical Records Department [address] [place] [id number] Anesthesia Postop Eval I 04/07/25 1506 MR#: [id number] Acct: [id number] Name: ARLETH RODAS Rep #:[id number] : 1980 45 From: Solomon FERRELL PCP: Care Physician,No Primary Status :[facility] Y Race: C Location: [place] [address] Anesthesia: Postop Eval I Current Vital Signs Temperature: 98.6 F Pulse Rate: 77 Blood Pressure: 110/64 Respiratory Rate: 16 Pulse Ox: 100 Assessment Airway patent: Yes Spontaneous unlabored respirations: Yes nausea: No Vomiting: No Anesthesia Complication: No Fluid Hydration Crystalloid volume administer (ml): 400 Total IV fluid infused: 400 Progress Note Anesthesia document: Postop Eval 1 completed: Yes 04/07/25 1507 <Electronically signed by Solomon Carter CRNA> Date _ Solomon Carter [employer] Cosigner Signature: Date CC: ~ Signed [facility] Work Phone: evaluation note* Diagnosis Category 3 mammography result with short follow-up interval suggested for probably benign finding- Primary Inconclusive [facility] Diagnosis Encounter for immunization- Primary Need for other specified prophylactic vaccination against single bacterial disease [facility]* Diagnosis Category 3 mammography result with short follow-up interval suggested for probably benign finding [facility]conclusive [facility] Diagnosis Onset Date Resolution Status Abdominal pain chronic Constipation chronic Health care maintenance acut e Hypertension chronic Obesity (BMI 30.0-34.9) evening sitter siobhan Abdominal pain chronic Alternating constipation and diarrhea chronic Muscle cramps chronic [facility] Work Phone: evaluation note* Diagnosis Encounter for gynecological examination (general) (routine) without abnormal findings- Primary Screening for cervical cancer Screening for malignant neoplasm of the cervix Encounter for screening for human papillomavirus (HPV) Special screening examination for human papillomavirus (HPV) Encounter for screening mammogram for breast cancer documented in this encounter [facility] note* Diagnosis Abnormal mammogram- Primary Abnormal mammogram, unspecified documented in this encounter [facility] note* Diagnosis Encounter for gynecological examination (general) (routine) without abnormal findings Encounter for screening mammogram for breast cancer documented in this encounter [facility] note* Diagnosis Encounter for gynecological examination (general) (routine) without abnormal findings- Primary Encounter for screening mammogram for breast cancer documented in this encounter [facility] note* Diagnosis Encounter for screening mammogram for breast cancer documented in this encounter [facility] noteNo assessment [facility] Work [facility]: [facility]* Diagnosis Encounter for screening mammogram for malignant neoplasm of breast- Primary Other screening mammogram documented in this encounter [facility] note* Diagnosis Encounter for gynecological examination (general) (routine) without abnormal findings- Primary Encounter for screening mammogram for breast cancer documented in this encounter [facility] note* Diagnosis Encounter for screening mammogram for malignant neoplasm of breast Other screening mammogram documented in this encounter [facility] for referral (narrative)* Diagnostic Procedure Only (Routine) - Pending Review Specialty Diagnoses / Procedures Referred By Rosa Isela thomas Referred To Contact [facility] Diagnoses Category 3 mammography result with short follow-up interval suggested for probably benign finding Procedures US BREAST LTD RT US BREAST UNI REAL TIME WITH IMAGE LIMITED Jarek Peters MD [address] [place] [address] [facility] [address] [place] [address] Referral ID Status Reason Start Date Expiration Date Visits Requested Visits Authorized [id number] Pending Review Auto-Generat ed Referral 02/14/2022 03/15/2023 1 1 * Diagnostic Procedure Only (Routine) - Pending Review Specialty Diagnoses / Procedures Referred By Rosa Isela thomas Referred To Contact [facility] Diagnoses Category 3 mammography result with short follow-up interval suggested for probably benign finding Procedures MITZY DIAGNOSTIC RT DIAGNOSTIC MAMMOGRAPHY COMPUTER-AIDED DETCJ UNI Jarek Peters MD [address] [place] [address] [facility] [address] [place] [address] Referral ID Status Reason Start Date Expiration Date Visits Requested Visits Authorized [id number] Pending Review Auto-Generat ed Referral 02/14/2022 03/15/2023 1 1 [facility] for referral (narrative)* Diagnostic Procedure Only (Routine) - Pending Review Specialty Diagnoses / Procedures Referred By Rosa Isela thomas Referred To Contact [facility] Diagnoses Encounter for screening mammogram for breast cancer Procedures MITZY SCREENING SCREENING MAMMOGRAPHY BI 2-VIEW BREAST INC CAD Jarek Peters MD [address] [place] [address] [facility] [address] [place] [address] Referral ID Status Reason Start Date Expiration Date Visits Requested Visits Authorized [id number] Pending Review Auto-Generat ed Referral 11/07/2022 12/07/2023 1 1 [facility] for referral (narrative)* Diagnostic Procedure Only (Routine) - Pending Review Specialty Diagnoses / Procedures Referred By Rosa Isela thomas Referred To Contact [facility] Diagnoses Abnormal mammogram Procedures US BREAST LTD LT US BREAST UNI REAL TIME WITH IMAGE LIMITED Jarek Peters MD [address] [place] [address] [facility] [address] [place] [phone] Referral ID Status Reason Start Date Expiration Date Visits Requested Visits Authorized [id number] Pending Review Auto-Generat ed Referral 11/13/2022 12/13/2023 1 1 * Diagnostic Procedure Only (Routine) - Pending Review Specialty Diagnoses / Procedures Referred By Rosa Isela thomas Referred To Contact [facility] Diagnoses Abnormal mammogram Procedures MITZY DIAGNOSTIC LT DIAGNOSTIC MAMMOGRAPHY COMPUTER-AIDED DETCJ UNI Jarek Peters MD [address] [place] [address] [facility] [address] [phone] Referral ID Status Reason Start Date Expiration Date Visits Requested Visits Authorized [id number] Pending Review Auto-Generat ed Referral 11/13/2022 12/13/2023 1 1 [facility] for referral (narrative)* Diagnostic Procedure Only (Routine) - Closed Specialty Diagnoses / Procedures Referred By Rosa Isela thomas Referred To Contact [facility] Diagnoses Encounter for gynecological examination (general) (routine) without abnormal findings Encounter for screening mammogram for breast cancer Procedures MITZY SCREENING SCREENING MAMMOGRAPHY BI 2-VIEW BREAST INC CAD Jarek Peters MD [address] [place] [address] [facility] [address] [place] [address] Referral ID Status Reason Start Date Expiration Date V isits Requested Visits Authorized [id number] Closed Auto-Generate d Referral 10/11/2021 11/10/2022 1 1 [facility] for referral (narrative)* Diagnostic Procedure Only (Routine) - Authorized Specialty Diagnoses / Procedures Referred By Rosa Isela thomas Referred To Contact [facility] Diagnoses Encounter for screening mammogram for breast cancer Procedures MITZY SCREENING W ELAN SCREENING DIGITAL BREAST TOMOSYNTHESIS BI SCREENING MAMMOGRAPHY BI 2-VIEW BREAST INC Missy Freedman MD [address] [place] [address] [facility] [address] [place] [phone] Referral ID Status Reason Start Date Expiration Date Visits Requested Visits Authorized [id number] Authorized Auto-Generat ed Referral 03/11/2024 04/10/2025 1 1 [facility] for referral (narrative)No reason for referral information availableSan [place] [facility] Work Phone: [facility] N[facility]* Diagnostic Procedure Only (Routine) - Closed Specialty Diagnoses / Procedures Referred By Rosa Isela thomas Referred To Contact [facility] Diagnoses Abnormal mammogram Procedures IMTZY DIAGNOSTIC RT DIAGNOSTIC MAMMOGRAPHY COMPUTER-AIDED DETCJ UNI Jarek Peters MD [address] [place] [address] [facility] [address] [place] [phone] Referral ID Status Reason Start Date Expiration Date V isits Requested Visits Authorized [id number] Closed Auto-Generate d Referral 10/12/2021 11/11/2022 1 1 [facility] for visit Narrative* Diagnostic Procedure Only (Routine) - Closed Specialty Diagnoses / Procedures Referred By Rosa Isela thomas Referred To Contact [facility] Diagnoses Encounter for gynecological examination (general) (routine) without abnormal findings Encounter for screening mammogram for breast cancer Procedures MITZY SCREENING SCREENING MAMMOGRAPHY BI 2-VIEW BREAST INC Jarek Casillas MD [address] [place] [address] [facility] [address] [place] [address] Referral ID Status Reason Start Date Expiration Date V isits Requested Visits Authorized [id number] Closed Auto-Generate d Referral 10/11/2021 11/10/2022 1 1 [facility] for visit Narrative* Diagnostic Procedure Only (Routine) - Closed Specialty Diagnoses / Procedures Referred By Rosa Isela t Referred To Contact [facility] Diagnoses Encounter for screening mammogram for breast cancer Procedures MITZY SCREENING W ELAN SCREENING DIGITAL BREAST TOMOSYNTHESIS BI SCREENING MAMMOGRAPHY BI 2-VIEW BREAST INC CAD Missy Calhoun MD [address] [place] [address] [facility] [address] [place] [address] Referral ID Status Reason Start Date Expiration Date V isits Requested Visits Authorized [id number] Closed Auto-Generate d Referral 03/11/2024 04/10/2025 1 1 [facility] for visit Narrative* Diagnostic Procedure Only (Routine) - Closed Specialty Diagnoses / Procedures Referred By Rosa Isela t Referred To Contact [facility] Diagnoses Encounter for screening mammogram for malignant neoplasm of breast Procedures MITZY SCREENING W ELAN SCREENING DIGITAL BREAST TOMOSYNTHESIS BI SCREENING MAMMOGRAPHY BI 2-VIEW BREAST INC CAD Jarek Peters MD [address] [place] [address] Phone: tel: fax: [facility] [address] [place] [address] Referral ID Status Reason Start Date Expiration Date V isits Requested Visits Authorized [id number] Closed Auto-Generate d Referral 02/20/2025 03/22/2026 1 1 [facility] Summary Purpose Family History Relationship Condition Age at Onset Recorded Date/T richardson grandmother Malignant neoplasm of breast Unknown Disorder of thyroid Unknown father Diabetes mellitus Unknown Malignant neoplasm Unknown mother Hypertension Unknown Psoriasis Unknown grandfather Psoriasis Unknown brother Psoriasis Unknown sister Psoriasis Unknown Advance Directives Advance Directive Response Recorded Date/ Time Living Will No July 26 9:39am Power of Sergeant Of Corrections No July 26, 2021 9:39am Advance Directive Response Recorded Date/ Time Do you have a Healthcare Power of Sergeant Of Cor[employer]? No April 01, 2025 10:25am Chief Complaint and Reason for Visit Chief Complaint 3 MO FU 3 M FU 3 MO FU Reason for Visit Abdominal pain Constipation Health care maintenance Hypertension Obesity (BMI 30.0-34.9) Abdominal pain Alternating constipation and diarrhea Muscle cramps Chief Complaint Admit Date 6 M FU February 10, 2025 9:33 am Reason for Visit Admit Date Abdominal discomfort February 10, 2025 9:3 3am Constipation February 10, 2025 9:33 am Encounter for screening colonoscopy 2024 12:53pm Additional Source Comments Source Comments (unrecognize d section and content) In the event this informatio n is protected by the Federal Confidentiality of Alcohol and Drug Abuse Patient Records regulations: The Federal rules restrict any use of the information to criminally investigate or prosecute any alcohol or drug abuse patient.[facility] the event this information is protected by the Federal Confidentiality of Alcohol and Drug Abuse Patient Records regulations: The Federal rules restrict any use of the information to criminally investigate or prosecute any alcohol or drug abuse patient.[facility] the event this information is protected by the Federal Confidentiality of Alcohol and Drug Abuse Patient Records regulations: The Federal rules restrict any use of the information to criminally investigate or prosecute any alcohol or drug abuse patient.[facility] the event this information is protected by the Federal Confidentiality of Alcohol and Drug Abuse Patient Records regulations: The Federal rules restrict any use of the information to criminally investigate or prosecute any alcohol or drug abuse patient.[facility] the event this information is protected by the Federal Confidentiality of Alcohol and Drug Abuse Patient Records regulations: The Federal rules restrict any use of the information to criminally investigate or prosecute any alcohol or drug abuse patient.[facility]In the event this information is protected by the Federal Confidentiality of Alcohol and Drug Abuse Patient Records regulations: The Federal rules restrict any use of the information to criminally investigate or prosecute any alcohol or drug abuse patient.[facility] HospitalIn the event this information is protected by the Federal Confidentiality of Alcohol and Drug Abuse Patient Records regulations: The Federal rules restrict any use of the information to criminally investigate or prosecute any alcohol or drug abuse patient.[facility] the event this information is protected by the Federal Confidentiality of Alcohol and Drug Abuse Patient Records regulations: The Federal rules restrict any use of the information to criminally investigate or prosecute any alcohol or drug abuse patient.[facility]In the event this information is protected by the Federal Confidentiality of Alcohol and Drug Abuse Patient Records regulations: The Federal rules restrict any use of the information to criminally investigate or prosecute any alcohol or drug abuse patient.[facility] the event this information is protected by the Federal Confidentiality of Alcohol and Drug Abuse Patient Records regulations: The Federal rules restrict any use of the information to criminally investigate or prosecute any alcohol or drug abuse patient.[facility] HospitalIn the event this information is protected by the Federal Confidentiality of Alcohol and Drug Abuse Patient Records regulations: The Federal rules restrict any use of the information to criminally investigate or prosecute any alcohol or drug abuse patient.[facility] HospitalIn the event this information is protected by the Federal Confidentiality of Alcohol and Drug Abuse Patient Records regulations: The Federal rules restrict any use of the information to criminally investigate or prosecute any alcohol or drug abuse patient.[facility] HospitalIn the event this information is protected by the Federal Confidentiality of Alcohol and Drug Abuse Patient Records regulations: The Federal rules restrict any use of the information to criminally investigate or prosecute any alcohol or drug abuse patient.[facility] HospitalIn the event this information is protected by the Federal Confidentiality of Alcohol and Drug Abuse Patient Records regulations: The Federal rules restrict any use of the information to criminally investigate or prosecute any alcohol or drug abuse patient.[facility] HospitalIn the event this information is protected by the Federal Confidentiality of Alcohol and Drug Abuse Patient Records regulations: The Federal rules restrict any use of the information to criminally investigate or prosecute any alcohol or drug abuse patient.[facility] HospitalIn the event this information is protected by the Federal Confidentiality of Alcohol and Drug Abuse Patient Records regulations: The Federal rules restrict any use of the information to criminally investigate or prosecute any alcohol or drug abuse patient.[facility] Reason for Visit (unrecogniz ed section and content) Reason Comments Orders Reason Comments Lab Orders Reason Comments Yearly Exam Reason Onset Date Comments Radiology Mamm[facility] Reason Comments Well Woman Reason Comments Orders Reason Comments Yearly Exam With Mammogram Care Teams (unrecognized sec tion and content) Scarrer Relationship Specialty Start Date End Date Brennen Murphy MD [address] [place] [address] PCP - General Internal Medicine 09/18/12 Scarrer Relationship Specialty Start Date End Date Brennen Murphy MD [address] [place] [address] PCP - General Internal Medicine 09/18/12 Scarrer Relationship Specialty Start Date End Date Brennen Murphy MD [address] [place] [address] PCP - General Internal Medicine 09/18/12 Scarrer Relationship Specialty Start Date End Date Brennen Murphy MD [address] [place], [place] [address] PCP - General Internal Medicine 09/18/12 Team Status: Active Member Role Status Dates Dr. Brennen Murphy MD Family Provider Active Dr. Coral Agosto MD Primary Care Provider Active Team Status: Inactive Member Role Status Dates Dr. Coral Agosto MD Primary Care Provider, Refer ring Provider Active Dr. Mellissa Cook DO Attending Provider Active Team Status: Inactive Member Role Status Dates Dr. Coral Agosto MD Primary Care P rovider, Attending Provider, Referring Provider Active Team Status: Inactive Member Role Status Dates Dr. Coral Agosto MD Primary Care Provider, Atten ding Provider Active Scarrer Relationship Specialty Start Date End Date Brennen Murphy MD [address] [place], [place] [id number] PCP - General Internal Medicine 09/18/12 Scarrer Relationship Specialty Start Date End Date Brennen Murphy MD [address] [place], [place] [id number] PCP - General Internal Medicine 09/18/12 Scarrer Relationship Specialty Start Date End Date Brennen Murphy MD [address] [place], [place] [id number] PCP - General Internal Medicine 09/18/12 Scarrer Relationship Specialty Start Date End Date Brennen Murphy MD [address] [place], [place] [id number] PCP - General Internal Medicine 09/18/12 Scarrer Relationship Specialty Start Date End Date Brennen Murphy MD [address] [place], [place] [id number] PCP - General Internal Medicine 09/18/12 Scarrer Relationship Specialty Start Date End Date Coral Agosto MD [address] [id number] PCP - General Internal Medicine 03/11/24 Scarrer Relationship Specialty Start Date End Date Coral Agosto MD [address] [place] [address] PCP - General Internal Medicine 03/11/24 Scarrer Relationship Specialty Start Date End Date Coral Agosto MD [address] [place] [address] PCP - General Internal Medicine 03/11/24 Scarrer Relationship Specialty Start Date End Date Coral Agosto MD [address] [facility] [address] [place] [address] PCP - General Internal Medicine 03/11/24 Team Status: Inactive Member Role Status Dates Dr. Coral Agosto MD Primary Care Provider Active Start: February 10, 2025 End: February 10, 2025 Dr. Coral Agosto MD Referring Provider Active Start: February 10, 2025 End: February 10, 2025 MAYA Horner Attending Provider Active Start: February 10, 2025 End: February 10, 2025 Scarrer Relationship Specialty Start Date End Date Coral Agosto MD [address] [place] [address] PCP - General Internal Medicine 03/11/24 Scarrer Relationship Specialty Start Date End Date Coral Agosto MD [address] [place] [phone] PCP - General Internal Medicine 03/11/24 Scarrer Relationship Specialty Start Date End Date Coral Agosto MD [address] [place] [address] PCP - General Internal Medicine 03/11/24 Team Status: Active Member Role/Relationship Status Dates No Primary Care Physician Primary Care Provider Active Team Status: Inactive Member Role/Relationship Status Dates Dr. Coral Agosto MD Primary Care Provider Active Start: February 10, 2025 End: February 10, 2025 Dr. Coral Agosto MD Referring Provider Active Start: February 10, 2025 End: February 10, 2025 MAYA Horner Attending Provider Active Start: February 10, 2025 End: February 10, 2025 Team Status: Inactive Member Role/Relationship Status Dates Dr. Mellissa Cook DO Attending Provider Active Start: April 07, 2025 End: April 07, 2025 No Primary Care Physician Primary Care Provider Active Start: April 07, 2025 End: April 07, 2025 No Primary Care Physician Referring Provider Active Start: April 07, 2025 End: April 07, 2025 Team Status: Active Member Role/Relationship Status Dates Dr. Mellissa Cook DO Attending Provider Active Start: April 07, 2025 Dr. Mellissa Cook DO Other Provider Active St art: April 07, 2025 No Primary Care Physician Primary Care Provider Active Start: April 07, 2025 No Primary Care Physician Referring Provider Active Start: April 07, 2025 INFORMATION SOURCE (unrecogn ized section and content) DATE CREATED AUTHOR 02/17/2022 [facility] DATE CREATED AUTHOR AUTHOR'S ORGANIZ ATION 03/18/2025 [facility] DATE CREATED AUTHOR AUTHOR'S ORGANIZ ATION 04/03/2025 [facility] Goals (unrecognized section and content) Goals may be documented in a n alternate sectionGoals may be documented in an alternate section FOR RECORDS PERTAINING TO PATIENTS WHO ARE OR HAVE BEEN ENROLLED IN A CHEMICAL DEPENDENCY/SUBSTANCEABUSE PROGRAM, SOME INFORMATION MAY BE OMITTED. This clinical summary was aggregated from multiple sources. Caution should be exercised in using it in the provision of clinical care. This summary normalizes information from multiple sources, and as a consequence, information in this document may materially change the coding, format and clinical context of patient data. In addition, data may be omitted in some cases. CLINICAL DECISIONS SHOULD BE BASED ON THE PRIMARY CLINICAL RECORDS. [facility] provides no warranty or guarantee of the accuracy or completeness of information in this document.
== END 2025-04-07 15:46 | disposition home or self-care (01) ==
LOC: EN 12:55 → AC 13:00
PROVIDERS: Anesthesiology; Visit Provider Internal Medicine Gastroenterology
PROC: 0DJD8ZZ Inspection of Lower Intestinal Tract, Via Natural or Artificial Opening Endoscopic (ICD-10-PCS; CPT 45378; principal; 2025-04-07 13:55)
DX: Z12.11 Encounter for screening for malignant neoplasm of colon (principal); I10 Essential (primary) hypertension; Z87.19 Personal history of other diseases of the digestive system
CPT/HCPCS: G0121; 81025